=== PATIENT | female | born 1955 ===

== ENCOUNTER 2023-03-02 16:32 | Outpatient (CLI) | payer OTHER, SELFPAY | END 2023-03-02 16:33 | disposition home or self-care (01) | PROVIDERS: PCP Family Medicine; Visit Provider Family Medicine | DX: Z00.00 Encounter for general adult medical examination without abnormal findings (principal); I10 Essential (primary) hypertension; R73.09 Other abnormal glucose; N39.0 Urinary tract infection, site not specified; M81.0 Age-related osteoporosis without current pathological fracture; Z11.59 Encounter for screening for other viral diseases; Z76.89 Persons encountering health services in other specified circumstances | CPT/HCPCS: 80053; 80061; 82043; 82306; 82570; 84443; 86803; 87086 ==

== ENCOUNTER 2023-03-24 11:20 | Outpatient (CLI) | payer OTHER, SELFPAY | END 2023-03-24 11:21 | disposition home or self-care (01) | LOC: FRMREF 11:21 | PROVIDERS: PCP Family Medicine; Visit Provider Family Medicine | DX: I10 Essential (primary) hypertension (principal); N39.0 Urinary tract infection, site not specified; B96.89 Other specified bacterial agents as the cause of diseases classified elsewhere | CPT/HCPCS: 80048; 87086; 87186 ==

== ENCOUNTER 2023-05-24 14:25 | Outpatient (CLI) | payer OTHER, SELFPAY ==
--- NOTE | 2023-05-24 15:00 | XR_ITS ---
Patient: CRISTINA RAZO Facility:?[facility] Patient ID:?[id number] Site Patient ID:?[id number]. Site :?[id number] Study:?DEXA-Bone Density SPINE/LT HIP-05/24/2023 3:05:40 PM Ordering Physician:DION Final Report: DXA BONE MINERAL DENSITY STUDY Reason for exam: Osteoporosis. Current height (in): 59. Weight (lb): 110. Menopause age: 67. Ethnicity: White. 1. Have you had a previous hip or vertebral fracture? No. 2. Have you had any fractures during your adult life which did not result from significant trauma (e.g., auto accident)? No. 3. Did either of your parents have a hip fracture? No. 4. Do you smoke? No. 5. Have you ever taken Glucocorticoids? Yes. 6. Do you have rheumatoid arthritis? No. 7. Do you have secondary osteoporosis? No. 8. Do you drink 3 or more alcoholic drinks per day? No. 9. Are you being treated for osteoporosis? Yes. 10. Have you ever taken any of the following medications: Actonel, Evista, Fosamax, Miacalcin, Reclast, Boniva, Forteo, HRT (i.e., estrogen/hormone therapy), Protelos, Prolia, Vitamin D, Calcium, other ? please specify. ANSWER: Yes, Fosamax (i.e., alendronate), Reclast (i.e., zoledronate), vitamin D, and Prolia (i.e., denosumab). 11. Do you have any of the following medical conditions: Anorexia or bulimia, asthma or emphysema, end stage renal disease, hyperparathyroidism, any seizure disorders, cancer, inflammatory bowel diseases, hysterectomy, other ? please specify. ANSWER: No. 12. What was your maximum height (inches)? 60. 13. Do you perform weight bearing exercise regularly? No. 14. Do you regularly consume dairy products? Yes. 15. Do you drink caffeinated beverages? Yes. If female: 16. At what age did your period start? 11. 17. Are you premenopausal? No. 18. How many full-term pregnancies have you had? 1. 19. Have you ever missed your period for more than 6 months in a row (not including or menopause)? No. TECHNIQUE: Bone mineral density study was performed using the Horizon Wi. FINDINGS: The results of the study expressed as bone mineral density (BMD) are as follows: Lumbar spine L1 to L3: BMD: 0.806 g/cm2. T-score: -1.9. Z-score: 0.0 Neck Left: BMD: 0.675 g/cm2. T-score: -1.6. Z-score: 0.1 Total Left: BMD: 0.822 g/cm2. T-score: -1.0. Z-score: 0.4 IMPRESSION: Osteopenia. Paulie Diaz M.D. Diagnostic Radiologist [email or web address] JOE/matthieu D& Transcribed: 12:40 p.mSandra sommers/Dictated by: Paulie Diaz MD @ 05/25/2023 8:23:00 AM Signed by:?Paulie Diaz MD @05/25/2023 12:51:30 PM (Electronic Signature)
== END 2023-05-24 14:26 | disposition home or self-care (01) ==
LOC: RAD 14:25
PROVIDERS: PCP Family Medicine; Visit Provider Family Medicine
DX: M81.0 Age-related osteoporosis without current pathological fracture (principal); M85.88 Other specified disorders of bone density and structure, other site
CPT/HCPCS: 77080

== ENCOUNTER 2023-09-25 16:37 | Outpatient (CLI) | payer OTHER, SELFPAY ==
--- OUTSIDE RECORDS SUMMARY | 2023-09-26 08:07 | XMS_ITS | Encounter Summary ---
Author Organization [place] Address [address] [place] [address] Care Team Providers Care Pick Up Driver Name Role Phone Raya Bruno PA-C Primary Care Provider Raya Bruno-C Unavailable [phone] Dara Morillo GC Unavailable [phone] Raya Bruno-C Unavailable [phone] Thuan Alarcon MD Unavailable Barber Denton MD, [place] Unavailable [phone] Thuan Sood MD Unavailable [phone] [facility]- Primary Care Provider Barbara Rivera PA-C Unavailable [phone] Thuan Sood MD Unavailable [phone] Reason for Visit * Reason Onset Date Comments Prior Auth - Medication 11/07/2022 Sonido Krishnanastick 20 % SOLUTION- PA APPROVED Encounter Details Date Type Department Care Team (Late st Contact Info) Description 11/07/[address] [address] Livia Bacon PA-C [address] [place], [place] [id number] Prior Auth - Medication (Levulan Kerastick 20 % SOLUTION- [place] APPROVED) Social History Tobacco Use Types Packs/Day Years Used Date Smoking Tobacco: Never Smokeless Tobacco: Never Alcohol Use Standard Drinks/Week Comments Not Currently 0 (1 standard drink = 0.6 oz pur e alcohol) PHQ-2 Answer Date Recorded PHQ-2 Score 0 09/30/2022 Sex and Gender Information Value Date Recorded Sex Assigned at Not on file Gender Identity Not on file Sexual Orientation Not on file COVID-19 Exposure Response Date Recorded In the last 10 days, have yo u been in contact with someone who was confirmed or suspected to have Coronavirus/COVID-19? No / Unsure 11/07/2022 1:00 PM CDT documented as of this encounter Miscellaneous Notes * Telephone Encounter - Yajaira Ramos - 11/11/2022 10:01 AM CDT Images from the original note were not included. Central Prior Authorization Team - Prior Authorization Approval Medication: LEVULAN KERASTICK 20 % EX SOLR Authorization Effective Date: 11/09/2022 Authorization Expiration Date: 02/19/2023 Approved Dose/Quantity: 1.5 Reference #: [facility] Company[facility] [employer] [facility] - Expected CoPay: CoPay Card Available: Financial Assistance Needed: Which Pharmacy is filling the prescription: [id number] [address] [facility] Pharmacy Notified: Yes Patient Notified: Yes PHARMACY WILL NOTIFY WHEN READY * Telephone Encounter - Yajaira Ramos - 11/09/2022 3:04 PM CDT Images from the original note were not included. Central Prior Authorization Team - PA Initiation Medication: LEVULAN KERASTICK 20 % EX SOLR Insurance Company: [employer] - Pharmacy Filling the Rx: [facility] #[id number] [place] - [address] [facility] Filling Pharmacy Filling Pharmacy Fax: Start Date: 11/09/2022 * Telephone Encounter - Falguni King RN - 11/08/2022 8:09 AM CDT Prior Authorization Retail Medication Request Medication/Dose: Aminolevulinic acid 20% ICD code (if different than what is on RX): Previously Tried and Failed: Rationale: Insurance Name: Insurance ID: Pharmacy Information (if different than what is on RX) Name: [facility] [facility] Phone: * Telephone Encounter - Latrice Faria RN - 11/07/2022 4:05 PM CDT REFILL REQUEST documented in this encounter Plan of Treatment Not on file documented as of this encounter Goals Goal Patient Goal Type Associated Problems Recent Progress Patient-Stated? 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 11/14/2022 11/15/202212/05 11:39 PM CDT documented as of this encounter Care Teams Pick Up Driver Relationship Specialty Start Date End Date Raya Bruno PA-C [address] [place] [address] ИРИНА JAIME [address] PCP - General Internal Medicine 10/05/21 02/26/23 [facility]- [address] [place] [address] PCP - General 02/27/23 Raya Bruno PA-C [address] [place] [address] ИРИНА JAIME 90991 Hospitalist Internal Medicine 11/16/21 Dara Morillo GC [address] [place] [address] Genetic Counselor Genetic Counselor, [place] 11/16/21 Raya Bruno PA-C [address] [place] [address] [place] [address] Assigned PCP 10/28/21 Thuan Alarcon MD [address] [place] [address] Assigned Musculoskeletal Provider 12/04/21 [place] Blandon MD [address] [place] [address] [id number] Assigned Gastroenterology Provider 02/05/22 08/12/23 Thuan Sood MD [address] [place] [address] 045205 Assigned Surgical Provider 08/06/22 Barbara Rivera PA-C [address] [place] [address] 248955 Assigned Surgical Provider 03/16/23 Thuan Sood MD [address] [place] [address] [id number] Urology 04/14/23 documented as of this encounter
--- OUTSIDE RECORDS SUMMARY | 2023-09-26 08:07 | XMS_ITS | Encounter Summary ---
Author Organization [place] Address [address] [place] [address] Care Team Providers Care Dirt Bike Mechanic Name Role Phone Raya Bruno PA-C Primary Care Provider + [phone] Raya Bruno-C Unavailable [phone] Dara Morillo GC Unavailable [phone] Raya Bruno-C Unavailable [phone] Thuan Alarcon MD Unavailable Barber Denton MD, [facility] Unavailable [phone] Thuan Sood MD Unavailable [phone] [facility]- Primary Care Provider Barbara Rivera PA-C Unavailable [phone] Thuan Sood MD Unavailable [phone] Reason for Visit * Reason Onset Date Comments Appointment 05/03/2022 Encounter Details Date Type Department Care Team (Late st Contact Info) Description 05/03/2022 [facility] [place] [place] [facility] [place] [id number] [place] [address] [address] [place] [address] Thuan Alarcon MD [address] [place] [address] [address] [place] [address] Appointment Social History Tobacco Use Types Packs/Day Years Used Date Smoking Tobacco: Never Smokeless Tobacco: Never PHQ-2 Answer Date Recorded PHQ-2 Score 0 03/09/2022 Sex and Gender Information Value Date Recorded Sex Assigned at Not on file Gender Identity Not on file Sexual Orientation Not on file COVID-19 Exposure Response Date Recorded In the last 10 days, have yo u been in contact with someone who was confirmed or suspected to have Coronavirus/COVID-19? No / Unsure 05/05/2022 1:28 PM CDT documented as of this encounter Miscellaneous Notes * Telephone Encounter - Jenfier Cyr RN - 05/04/2022 2:24 PM CDT Please also see Mychart dated 05/03/22. Patient was transferred from scheduling. She states physical therapy is recommending that she be seen sooner. She is having difficulty progressing in physical therapy and thinks it could be related to a misstep 10 days after surgery. On 04/15/22 patient forgot to take one step at a time on the stairs and had a misstep that caused her to put all her weight on her left leg. She had severe pain at the time. She did not mention it at her follow up appointment on 04/18/[address] Alarcon as she thought it would improve. She continues tohave pain in one specific area on the inside of her left knee near the lower part of her incision. Incision is closed and healing without drainage. There is a small area of tenderness to the touch that feels somewhat raised and warm to the touch . There is no redness. Knee swelling is improving andshe wears her SIN hose. She denies calf pain or swelling. Now that there are new exercises she is doing in physical therapy, she is having more pain in this area and she is unable to do some of the exercises. Physical therapy recommended she be seen again by Ortho. Patient is able to walk but has a lot of pain if her knee turns or twists in certain positions. Knee is also more stiff. Appointment scheduled with Calvin Gonzalez PA-C on 05/05/22 at 2pm with 1:45 pm arrival. She verbalizedunderstanding. Rhianna Cyr RN documented in this encounter Plan of Treatment Not on file documented as of this encounter Goals Goal Patient Goal Type Associated Problems Recent Progress Patient-Stated? 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 11/14/2022 11/15/202212/05 11:39 PM CDT documented as of this encounter Care Teams Dirt Bike Mechanic Relationship Specialty Start Date End Date Raya Bruno PA-C [address] [place] [address] ИРИНА JAIME 10060 PCP - General Internal Medicine 10/05/21 02/26/23 [facility]- [address] [place] [address] PCP - General 02/27/23 Raya Bruno PA-C [address] [place] [address] ИРИНА JAIME 87502 Hospitalist Internal Medicine 11/16/21 Dara Morillo GC [address] [place] [address] Genetic Counselor Genetic Counselor, [place] 11/16/21 Raya Bruno PA-C [address] [place] [address] ИРИНА JAIME 32263 Assigned PCP 10/28/21 Thuan Alarcon MD [address] [place] [address] 244[address] Assigned Musculoskeletal Provider 12/04/21 [place] Blandon MD [address] [place] [address] Assigned Gastroenterology Provider 02/05/22 08/12/23 Thuan Sood MD [address] [place] [address] Assigned Surgical Provider 08/06/22 Barbara Rivera, PAMarcellaC [address] [place] [address] Assigned Surgical Provider 03/16/23 Thuan Sood MD [address] [place] [address] Urology 04/14/23 documented as of this encounter
--- OUTSIDE RECORDS SUMMARY | 2023-09-26 08:07 | XMS_ITS | Encounter Summary ---
Author Organization [place] Address [address] [place] [address] Care Team Providers Care Drive In Theater Attendant Name Role Phone Damion Raya Montaño PA-C Unavailable [phone] Dara Morillo GC Unavailable [phone] Raya Bruno PA-C Unavailable [phone] Thuan Alarcon MD Unavailable Barber Denton MD, [place] Unavailable [phone] [facility]- Primary Care Provider Barbara Rivera PA-C Unavailable [phone] Thuan Sood MD Unavailable [phone] Encounter Details Date Type Department Care Team (Late st Contact Info) Description 04/06/2023 MyC Medical Advice [facility] [address] 4th [place] [address] Tiffanie Casillas Social History Tobacco Use Types Packs/Day Years Used Date Smoking Tobacco: Never Smokeless Tobacco: Never Alcohol Use Standard Drinks/Week Comments Not Currently 0 (1 standard drink = 0.6 oz pur e alcohol) PHQ-2 Answer Date Recorded PHQ-2 Score 0 09/30/2022 Adolescent Education Answer Date Record ed Getting School Help Needed Not on file 11/12 Sex and Gender Information Value Date Recorded Sex Assigned at Not on file Gender Identity Not on file Sexual Orientation Not on file documented as of this encounter Plan of Treatment Not on [...] 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 documented as of this encounter Care Teams Drive In Theater Attendant Relationship Specialty Start Date End Date [facility]- [address] [place] [address] PCP - General 02/27/23 Raya Bruno PA-C [address] [place] [address] ИРИНА JAIME 52020 Hospitalist Internal Medicine 11/16/21 Dara Morillo GC [address] [place] [address] Genetic Counselor Genetic Counselor, [place] 11/16/21 Raya Bruno PA-C [address] [place] [address] ИРИНА JAIME [address]45 Assigned PCP 10/28/21 Thuan Alarcon MD [address] [phone] Assigned Musculoskeletal Provider 12/04/21 [place] Blandon MD [address] [place] [address]881 Assigned Gastroenterology Provider 02/05/22 08/12/23 Barbara Rivera PA-C [address] [place] [address] 12749 Assigned Surgical Provider 03/16/23 Thuan Sood MD [address] [place] [address] Urology 04/14/23 documented as of this encounter
--- OUTSIDE RECORDS SUMMARY | 2023-09-26 08:07 | XMS_ITS | Encounter Summary ---
Author Organization [place] Address [address] [place] [address]41 Care Team Providers Care Vanstone Machine Operator Name Role Phone Raya Bruno PA-C Unavailable [phone] Dara Morillo GC Unavailable Raya BrunoC Unavailable [phone] Thuan Alarcon MD Unavailable [facility]- Primary Care Provider Barbara RiveraC Unavailable Thuan Sood MD Unavailable [phone] Reason for Visit * Reason Comments Medication Refill Encounter Details Date Type Department Care Team (Late st Contact Info) Description 09/01/[address] [place] [id number] Raya Bruno PA-C [address] [place] [address] ИРИАН JAIME 59597 Medication Refill Social History Tobacco Use Types Packs/Day Years [...] on file documented as of this encounter Miscellaneous Notes * Telephone Encounter - Raya Bruno PA-C - 09/06/2023 2:15 PM CDT Refill denied. * Telephone Encounter - Nuris Ernst CMA - 09/06/2023 2:05 PM CDT Spoke to pt, states she is no longer a [facility] pt. Advised to contact pharmacy and let them know. Pt agrees. Please remove medication. Alvin Eden CMA * Telephone Encounter - Soniya Rucker RN - 09/05/2023 3:52 PM CDT Has not been seen since 09/30/22, encounter from 02/24/23 MC is that she moved to different [facility] in [place]. Triage Patient Outreach Attempt # 1 Was call answered? No. Left voicemail to return call to EP clinic. Upon c/b: please let pt know that she needs to request refills from new PCP. Soniya Rucker, RN documented in this encounter Plan of Treatment Not on file documented as of this encounter Goals Goal Patient Goal Type Associated Problems Recent Progress Patient-Stated? 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 documented as of this encounter Care Teams Vanstone Machine Operator Relationship Specialty Start Date End Date [facility]- [address] [place] [address] PCP - General 02/27/23 Raya Bruno PA-C [address] [place] [address] ИРИНА JAIME 04356 Hospitalist Internal Medicine 11/16/21 [place] [address] [place] [address] Genetic Counselor Genetic Counselor, [place] 11/16/21 Raya Bruno PA-C [address] [place] [address] ИРИНА JAIME 31060 Assigned PCP 10/28/21 Thuan Alarcon MD 420 [facility] [address] [place] [address] Assigned Musculoskeletal Provider 12/04/21 Barbara Rivera PA-C [address] [place] [address] Assigned Surgical Provider 03/16/23 Thuan Sood MD [address] [place] [address] Urology 04/14/23 documented as of this encounter
--- OUTSIDE RECORDS SUMMARY | 2023-09-26 08:07 | XMS_ITS | Encounter Summary ---
Author Organization [place] Address [address] [place] [address]95 Care Team Providers Care Draw Tender Name Role Phone Raya Bruno PA-C Primary Care Provider + [phone] Raya Bruno PA-C Unavailable [phone] Dara Morillo GC Unavailable [phone] Raya Bruno-C Unavailable [phone] Thuan Alarcon MD Unavailable Barber Denton MD, [place] Unavailable [phone] Thuan Sood MD Unavailable [phone] [facility]- Primary Care Provider Barbara Rivera PA-C Unavailable [phone] Thuan Sood MD Unavailable [phone] Encounter Details Date Type Department Care Team (Late st Contact Info) Description 05/04/2022 [facility] [place] [address] [place] [address] Nela Yu, PT [address] [address] Social History Tobacco Use Types Packs/Day Years [...] PM CDT documented as of this encounter Plan of [...] documented as of this encounter Care Teams Draw Tender Relationship Specialty Start Date End Date Raya Bruno PA-C [address] [place] [address] ИРИНА JAIME 17070 PCP - General Internal Medicine 10/05/21 02/26/23 [facility]- [address], [place] [address] PCP - General 02/27/23 Raya Bruno PA-C [address] [place] [address] ИРИНА JAIME 49720 Hospitalist Internal Medicine 11/16/21 Dara Morillo GC [address] [place] [address] Genetic Counselor Genetic Counselor, [place] 11/16/21 Raya Bruno PA-C [address] [place] [address] ИРИНА JAIME 72136 Assigned PCP 10/28/21 Thuan Alarcon MD [address] [place] [address] Assigned Musculoskeletal Provider 12/04/21 [place] Blandon MD [address] [place] [address] Assigned Gastroenterology Provider 02/05/22 08/12/23 Thuan Sood MD [address] [place] [address]309 Assigned Surgical Provider 08/06/22 Barbara Rivera, PA-C [address] [place] [address] Assigned Surgical Provider 03/16/23 Thuan Sood MD [address] [place] [address] Urology 04/14/23 documented as of this encounter
--- OUTSIDE RECORDS SUMMARY | 2023-09-26 08:07 | XMS_ITS | Encounter Summary ---
Author Organization [place] Address [address] [place] [address] Care Team Providers Care Meat Cutting Teacher Name Role Phone Raya Bruno PA-C Primary Care Provider + [phone] Raya Bruno-C Unavailable [phone] Dara Morillo GC Unavailable [phone] Raya Bruno-C Unavailable [phone] Thuan Alarcon MD Unavailable Barber Denton MD, [place] Unavailable [phone] Thuan Sood MD Unavailable [phone] [facility]- Primary Care Provider Barbara Rivera PA-C Unavailable [phone] Thuan Sood MD Unavailable [phone] Encounter Details Date Type Department Care Team (Late st Contact Info) Description 02/02/2022 Telephone [facility] [address] [facility] [address] 4th [place] [address] Thuan Alarcon MD 420 [facility] 292 [place] [address] Social History Tobacco Use Types Packs/Day Years Used Date Smoking Tobacco: Never Smokeless Tobacco: Never PHQ-2 Answer Date Recorded PHQ-2 Score 0 02/02/2022 Sex and Gender Information Value Date Recorded [...] documented as of this encounter Care Teams Meat Cutting Teacher Relationship Specialty Start Date End Date Raya Bruno PA-C [address] [place] [address] ИРИНА JAIME [address] PCP - General Internal Medicine 10/05/21 02/26/23 [facility]- [address], [place] [address] PCP - General 02/27/23 Raya Bruno PA-C [address] [place] [address] ИРИНА JAIME 95839 Hospitalist Internal Medicine 11/16/21 Dara Morillo GC [address] [place] [address] Genetic Counselor Genetic Counselor, [place] 11/16/21 Raya Bruno PA-C [address] [place] [address] ИРИНА JAIME 36359 Assigned PCP 10/28/21 Thuan Alarcon MD [address] [place] [address] Assigned Musculoskeletal Provider 12/04/21 [place] Blandon MD [address] [place] [address] Assigned Gastroenterology Provider 02/05/22 08/12/23 Thuan Sood MD [address] [place] [address] Assigned Surgical Provider 08/06/22 Barbara Rivera PA-C [address] [place] [address] Assigned Surgical Provider 03/16/23 Thuan Sood MD [address] [place] [address] Urology 04/14/23 documented as of this encounter
--- OUTSIDE RECORDS SUMMARY | 2023-09-26 08:07 | XMS_ITS | Encounter Summary ---
Author Organization [facility] Address [address] [place] [address] Care Team Providers Care Mannequin Mold Maker Name Role Phone Raya Bruno PA-C Primary Care Provider + [phone] Raya Bruno PA-C Unavailable [phone] Dara Morillo GC Unavailable [phone] Raya Bruno-C Unavailable [phone] Thuan Alarcon MD Unavailable Barber Denton MD, [place] Unavailable [phone] Tuhan Sood MD Unavailable [phone] [facility]- Primary Care Provider Barbara Rivera PA-C Unavailable [phone] Thuan Sood MD Unavailable [phone] Encounter Details Date Type Department Care Team (Late st Contact Info) Description 09/20/2022 [facility] Medical Advice [facility] U[facility] Clinic [address] 4th [place] [address] Vidya Castillo Social History Tobacco Use Types Packs/Day Years Used Date Smoking Tobacco: Never Smokeless Tobacco: Never Alcohol Use Standard Drinks/Week Comments Not Currently 0 (1 standard drink = 0.6 oz pur e alcohol) PHQ-2 Answer Date Recorded PHQ-2 Score 0 08/02/2022 Sex and Gender Information Value Date Recorded Sex Assigned at Not on file Gender Identity Not on file Sexual Orientation Not on file COVID-19 Exposure Response Date Recorded In the last 10 days, have yo u been in contact with someone who was confirmed or suspected to have Coronavirus/COVID-19? No / Unsure 09/23/2022 10:02 AM CDT documented as of this encounter Plan [...] documented as of this encounter Care Teams Mannequin Mold Maker Relationship Specialty Start Date End Date Raya Bruno PA-C [address] [place] [address] ИРИНА JAIME [address] PCP - General Internal Medicine 10/05/21 02/26/23 [facility]- [address] [place] [address] PCP - General 02/27/23 Raya Bruno PA-C [address] [place] [address] ИРИНА JAIME [address] Hospitalist Internal Medicine 11/16/21 Dara Morillo GC [address] [place] [address] Genetic Counselor Genetic Counselor, [place] 11/16/21 Raya Bruno PA-C [address] [place] [address] ИРИНА JAIME [address] Assigned PCP 10/28/21 Thuan Alarcon MD [address] [place] [address] Assigned Musculoskeletal Provider 12/04/21 Darien Blandon MD [address] [place] [address] [id number] Assigned Gastroenterology Provider 02/05/22 08/12/23 Thuan Sood MD [address] [place] [address] 158305 Assigned Surgical Provider 08/06/22 Barbara Rivera, PAMarcellaC [address] [place] [address] Assigned Surgical Provider 03/16/23 Thuan Sood MD [address] [place] [address] [id number] Urology 04/14/23 documented as of this encounter
--- OUTSIDE RECORDS SUMMARY | 2023-09-26 08:07 | XMS_ITS | Clinical Summary ---
Author Organization [facility] Address [address] [place] [address] Care Team Providers Care Road Hogger Operator Name Role Phone Raya Bruno PA-C Unavailable [phone] Dara Morillo GC Unavailable Raya Bruno PA-C Unavailable Thuan Alarcon MD Unavailable [facility]- Primary Care Provider Barbara Rivera PA-C Unavailable [phone] Thuan Sood MD Unavailable Allergies Active Allergy Reactions Criticality Noted Date Comments Nitrofuran Derivatives Other (See Comments),Rash Medium 10/25/2002 Rash: Rash No Clinical Screening - See Comments Swelling,Other (See Comments) 09/10/2012 Bio-absorbable material (screws & pins), causes inflammation bioabsorpable screws Medications Medication Sig Dispensed Refills Start Date End Date Status Coenzyme Q10 (CO Q 10 PO) Take 1 chew tab by mouth daily gummy Active Ca Phosphate-Cholecalc iferol (CALCIUM/VITAMIN D3 GUMMIES) 250-350 MG-UNIT CHEW Take 2 tablets by mouth daily Active pregabalin (LYRICA) 25 MG capsuleIndications: 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 Max 4 tablets/24 hours. 12 tablet 3 Active estradiol (ESTRACE) 0.1 MG/GM vaginal cream INSERT 1 GRAM IN TO VAGINA TWO TIMES A WEEK 3 Active ondansetron (ZOFRAN ODT) 4 MG ODT tabIndications:Calc ulus of kidney Take 1 tablet (4 mg) by mouth every 8 hours as needed for nausea 10 tablet 3 Active celecoxib (CELEBREX) 100 MG capsuleIndications: Hip pain, right Take 1 capsule (100 mg) by mouth 2 times daily 180 capsule 3 Active omeprazole (PRILOSEC) [address] capsuleIndications: Gastroesophageal reflux disease with esophagitis without hemorrhage,Mariscal' s esophagus without dysplasia TAKE 1 CAPSULE BY MOUTH EVERY DAY 90 capsule 4 3 Active atorvastatin (LIPITOR) 20 MG tabletIndications:M ixed hyperlipidemia Take 1 tablet (20 mg) by mouth every evening 90 tablet 2 3 Active mirabegron (MYRBETRIQ) 25 MG 24 hr tabletIndications:O veractive bladder,Mixed incontinence Take 1 tablet (25 mg) by mouth daily 30 tablet 3 3 Active primidone (MYSOLINE) 50 MG tabletIndications:B enign essential tremor Take 4 tablets (200 mg) by mouth at bedtime 360 tablet 2 4 Active DULoxetine (CYMBALTA) 30 MG capsuleIndications: 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) TAKE 1 CAPSULE BY MOUTH EVERY DAY 90 capsule 4 Active triamterene-HCTZ (MAXZIDE-25) 37.5-25 MG tabletIndications:E ssential hypertension TAKE 1/2 TABLET BY MOUTH EVERY DAY 45 tablet 1 4 Active triamterene-HCTZ (MAXZIDE-25) 37.5-25 MG tabletIndications:E ssential hypertension triamterene 37.5 mg-hydrochlorot hiazide 25 mg tablet TAKE 1/2 TABLET BY MOUTH EVERY DAY 90 tablet 08/30/19 24 Discontinued Active Problems Problem Noted Date Diagnosed Date Diastolic dysfunction 09/23/2022 Overview: Grade I, found on echocardiogram 09/2022 Acute chest pain 08/26/2022 Calculus of kidney 08/02/2022 Overview: Added automatically from request for surgery [id number] Aftercare following left knee joint replacement surgery 04/19/2022 Primary osteoarthritis of left knee 03/22/2022 Overview: Added automatically from request for surgery [id number] Benign essential tremor 11/12/2021 Compression of cauda equina due to stenosis of l umbar spine 11/12/2021 History of kidney stones 11/12/2021 Age-related osteoporosis wit hout current pathological fracture 11/10/2021 Mariscal's esophagus 11/10/2021 Hypertension 10/31/2016 Mixed hyperlipidemia 10/07/2015 Reflux esophagitis 02/03/2004 Encounters Date Type Department Care Team Description 09/02/[address] [address] Raya Bruno PA-C Medication Refill 09/01/2023 Refill M [address] [address] Raya Bruno PA-C Medication Refill 08/30/2023 Refill M [address] [address] Raya Bruno PA-C Medication Refill 08/08/2023 Refill M [address] [address] Raya Bruno PA-C Medication Refill 07/18/2023 Refill M [address] [place] [address] Raya Bruno PA-C Medication Refill from Last 3 Months Immunizations Name Administration Dates Next Due COVID-19 12+ () (MODERNA) 01/25/2023 COVID-19 Bivalent 12+ (Pfizer) 11/01/2021 COVID-19 Monovalent 18+ (Moderna) 04/17/2020, COVID-19 Monovalent Booster 18+ (Moderna) 04/22/2021,10/08/2020 Influenza (H1N1) 10/31/2013,03/16/2009 Influenza (IIV3) PF 11/07/2012, 2,11/18/2010,2009,11/21/2007,12/15/2006,01/31/2005,1 ,01/12/2004,01/08/2003 Influenza Vaccine 65+ (FLUAD) 01/05/2023 Influenza Vaccine 65+ (Fluzone HD) 12/03/2021 Influenza Vaccine >6 months,quad, PF 10/31/2016, 12/04/2015 Influenza Vaccine, 6+MO IM (QUADRIVALENT W/PRESERVATIVES) 12/09/2014 Pneumococcal 23 valent 03/18/2016 RSV Vaccine (Arexvy) 12/28/2022 TD,PF 7+ (Tenivac) 02/05/2002 TDAP (Adacel,Boostrix) 03/07/2012 TDAP Vaccine (Adacel) 07/14/2023 Td (Adult), Adsorbed 02/20/2002,02/05/2002 Zoster vaccine, live 03/02/2011 Family History Medical History Relation Comments Lung Cancer Brother Uterine Cancer Mother Multiple myeloma Sister Relation Status Comments Brother Mother Sister Social History Tobacco Use Types Packs/Day Years Used Date Smoking Tobacco: Never Smokeless Tobacco: Never Tobacco Cessation:Counseling Given: Not Answered Alcohol Use Standard Drinks/Week Comments Not Currently 0 (1 standard drink = 0.6 oz pur e alcohol) PHQ-2 Answer Date Recorded PHQ-2 Score 0 09/30/2022 Adolescent Education Answer Date Record ed Getting School Help Needed Not on file 11/12 Sex and Gender Information Value Date Recorded Sex Assigned at Not on file Gender Identity Not on file Sexual Orientation Not on file Last Filed Vital Signs Vital Sign Reading Time Taken Comments Blood Pressure 123/78 01/20/2023 11:20 AM MEETING FACILITATOR Pulse 79 01/20/2023 11:20 AM MEETING FACILITATOR Temperature 37 ??C (98.6 ??F) 09/30/2022 11:17 AM CDT Respiratory Rate 14 09/30/2022 11:17 AM CDT Oxygen Saturation 97% 01/20/2023 11:20 AM MEETING FACILITATOR Inhaled Oxygen Concentration - - Weight 47.2 kg (104 lb) 10/21/2022 2:00 PM CDT p er pt Height 147.3 cm (4' 10) 10/21/2022 2:00 PM CDT per pt Body Mass Index 21.74 10/21/2022 2:00 PM CDT Plan of Treatment Health Maintenance Due Date Last Done Comments CT COLONOGRAPHY 1955 DEXA 1955 FIT 1955 FLEX SIG 1955 sDNA (Cologuard) 1955 ZOSTER IMMUNIZATION (2 of 3) 04/27/2011 03/02/2011 Pneumococcal Vaccine: 65+ Years (2 of 2 - PCV) 11/20/2019 03/18/2016 ANNUAL REVIEW OF HM ORDERS 11/12/2022 11/12/2021 PHQ-2 (once per calendar year) 2023 09/30/2022, 08/02/2022, 07/19/2022, Additional history exists COVID-19 Vaccine ( season) 2023 01/25/2023, 11/01/2021, 04/22/2021, Additional history exists FALL RISK ASSESSMENT 10/01/2023 09/30/2022, 07/19/2022, 11/12/2021 LIPID 10/01/2023 09/30/2022, 11/12/2021 MEDICARE ANNUAL WELLNESS VISIT 10/01/2023 09/30/2022, 03/18/2016, 03/18/2015, Additional history exists INFLUENZA VACCINE (#1) 2023 , 12/03/2021, 10/31/2016, Additional history exists MAMMO SCREENING 12/08/2023 12/07/2021, 07/22, 08/19/2015, Additional history exists GLUCOSE 09/30/2025 09/30/2022, 08/2022, 07/18/2022, Additional history exists ADVANCE CARE PLANNING 10/01/2027 09/30/2022 , 08/19/2022, 03/09/2022 COLONOSCOPY 02/12/2032 02/11/2022, 01/21, 04/12/2016, Additional history exists COLORECTAL CANCER SCREENING 02/12/2032 DTAP/TDAP/TD IMMUNIZATION (3 - Td or Tdap) 07/13/2033 07/14/2023, 03/07/2012, 02/20/2002, Additional history exists HEPATITIS C SCREENING Addressed 05/08/2013 Overri dden with the intention of not completing the topic RSV VACCINE ( & 60+) Completed 12/28/2022 HPV IMMUNIZATION Aged Out No longer e ligible based on patient's age to complete this topic IPV IMMUNIZATION Aged Out No longer e ligible based on patient's age to complete this topic MENINGITIS IMMUNIZATION Aged Out No l onger eligible based on patient's age to complete this topic RSV MONOCLONAL ANTIBODY Aged Out No l onger eligible based on patient's age to complete this topic Goals Goal Patient Goal Type Associated Problems Recent Progress Patient-Stated? Author 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 Care Plan 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 No [employer] Implanted Type Area Resort Keeper Device Identifier Shelf Expiration Date Model / Serial / Lot Bone Cement Simplex Full Dose 6191-1-001 - [id number] Implanted:Qty: 1 on 04/05/2022 by Thuan Alarcon MD at [facility] Cement, Bone Left: Knee [employer] [id number] 07/20/2024 6191-1-001 / / [id number] Stent, Ureteral, 6fr X 22cm, Hydroplus Coating, Positioner, Without Fire, Percuflex Plus - [id number] Implanted:Qty: 1 on 08/26/2022 by Thuan Sood MD at [facility] Stent Left: Ureter 10/07/2022 [id number] / / [id number] Link Sled Prosthesis Implanted:Qty: 1 on 04/05/2022 by Thuan Alarcon MD at [facility] Left: Knee [id number] 10/20/2024 FEMORAL COMPONENT / [id number] / Link Sled Prosthesis Implanted:Qty: 1 on 04/05/2022 by Thuan Alarcon MD at [facility] Left: Knee [id number] 10/20/2025 TIBIAL COMPONENT / / [id number] Procedures Procedure Name Priority Date/Time Associated Diagnosis Comments COMPREHENSIVE METABOLIC PANEL Routine 09/30/2022 12:14 PM CDT Primary hypertension LIPID REFLEX TO DIRECT LDL PANEL Routine 09/30/2022 12:14 PM CDT Mixed hyperlipidemia COLONOSCOPY Routine 02/11/2022 10:23 AM MEETING FACILITATOR MA SCREENING WITH IMPLANTS BILATERAL W/ PRANAV Routine 12/07/2021 11:34 AM CDT Visit for screening mammogram from Last 3 Months or Most Recently Relevant to Health Maintenance Results * Lipid panel reflex to direct LDL Fasting (09/30/2022 12:14 PM CDT) Cholesterol 184 <200 mg/dL 09/30/2022 7:53 PM CDT [facility] Triglycerides 67 <150 mg/dL 09/30/2022 7:53 PM CDT [facility] Direct Measure HDL 90 >=50 mg/dL 2022 7:53 PM CDT [facility] LDL Cholesterol Calculated 81 <=100 mg/dL 09/30/2022 7:53 PM CDT [facility] Non HDL Cholesterol 94 <130 mg/dL 09/30/2022 7:53 PM CDT [facility] Blood BLOOD SPECIMEN / Unknown Venipuncture / Unknown 09/30/2022 12:14 PM CDT 09/30/2022 12:21 PM CDT Narrative [facility] - 09/30/2022 7:53 PM CDT Cholesterol Desirable: ??<200 mg/dL Triglycerides Normal: ??Less than 150 mg/dL Borderline High: ??150-199 mg/dL High: ??200-499 mg/dL Very High: ??Greater than or equal to 500 mg/dL Direct Measure HDL Female: ??Greater than or equal to 50 mg/dL Male: ??Greater than or equal to 40 mg/dL LDL Cholesterol Desirable: ??<100mg/dL Above Desirable: ??100-129 mg/dL Borderline High: ??130-159 mg/dL High: ??160-189 mg/dL Very High: ??>= 190 mg/dL Non HDL Cholesterol Desirable: ??130 mg/dL Above Desirable: ??130-159 mg/dL Borderline High: ??160-189 mg/dL High: ??190-219 mg/dL Very High: ??Greater than or equal to 220 mg/dL Raya Bruno PA-C LAB - BLOOD ORDERA BLES [facility] [address] [facility], [address] [id number], [facility] [phone] * Comprehensive metabolic panel (09/30/2022 12:14 PM CDT) Pathologist [facility] Sodium 140 136 - 145 mmol/L 09/30/2022 7:53 PM CDT [facility] Potassium 3.9 3.4 - 5.3 mmol/L 09/30/2022 7:53 PM CDT [facility] Chloride 102 98 - 107 mmol/L 09/30/2022 7:53 PM CDT [facility] Carbon Dioxide (CO2) 25 22 - 29 mmol/L 09/30/2022 7:53 PM CDT [facility] Anion Gap 13 7 - 15 mmol/L 09/30/2022 7:53 PM CDT [facility] Urea Nitrogen 14.3 8.0 - 23.0 mg/dL 09/30/2022 7:53 PM CDT [facility] Creatinine 0.59 0.51 - 0.95 mg/dL 09/30/2022 7:53 PM CDT [facility] Calcium 9.1 8.8 - 10.2 mg/dL 09/30/2022 7:53 PM CDT [facility] Glucose 94 70 - 99 mg/dL 09/30/2022 7:53 PM CDT [facility] Alkaline Phosphatase 87 35 - 104 U/L 09/30/2022 7:53 PM CDT [facility] AST 31 0 - 45 U/L 09/30/2022 7:53 PM CDT [facility] Comment:Reference intervals for this test were updated on 08/01/2022 to more accurately reflect our healthy population. There may be differences in the flagging of prior results with similar values performed with this method. Interpretation of those prior results can be made in the context of the updated reference intervals. ALT 24 0 - 50 U/L 09/30/2022 7:53 PM CDT [facility] Comment:Reference intervals for this test were updated on 08/01/2022 to more accurately reflect our healthy population. There may be differences in the flagging of prior results with similar values performed with this method. Interpretation of those prior results can be made in the context of the updated reference intervals. Protein Total 7.1 6.4 - 8.3 g/dL 09/30/2022 7:53 PM CDT [facility] Albumin 4.6 3.5 - 5.2 g/dL 09/30/2022 7:53 PM CDT [facility] Bilirubin Total 0.3 <=1.2 mg/dL 09/30/2022 7:53 PM CDT [facility] GFR Estimate >90 >60 mL/min/1. 73m2 09/30/2022 7:53 PM CDT [facility] Blood BLOOD SPECIMEN / Unknown Venipuncture / Unknown 09/30/2022 12:14 PM CDT 09/30/2022 12:21 PM CDT Raya Bruno PA-C LAB - BLOOD ORDERA BLES [facility] [address] [facility], [address] [place] [address], [facility] [phone] * COLONOSCOPY (02/11/2022 10:23 AM MEETING FACILITATOR) [place] [address] Jahaira Chang ??ИРИНА Farfan ??[id number] Patient Name: Florence Winn ?Procedure Date: 02/11/2022 10:23 AM ? Date of : 1955 ?Admit Type: Outpatient Age: 66 ? Room: [place] [address] Note Status: Finalized ?Attending MD: RINKU MEDRANO MD Instrument Name: [id number] Colonoscope Procedure: ?Colonoscopy Indications: ?Screening for colorectal malignant neoplasm Providers: ?RINKU MEDRANO MD, Shanita Chacko RN Referring : ? ROSALES HURTADO Medicines: ?Midazolam 6 mg IV, Fentanyl 150 micrograms IV, ?Ondansetron 4 mg IV Complications: ?No immediate complications. Procedure: ?Pre-Anesthesia Assessment: ?- Prior to the procedure, a History and Physical ?was performed, and patient medications and ?allergies were reviewed. The patient is competent. ?The risks and benefits of the procedure and the ?sedation options and risks were discussed with the ?patient. All questions were answered and informed ?consent was obtained. Patient identification and ?proposed procedure were verified by the physician. ?Mental Status Examination: alert and oriented. ?Prophylactic Antibiotics: The patient does not ?require prophylactic antibiotics. Prior ?Anticoagulants: The patient has taken no ?anticoagulant or antiplatelet agents. ASA Grade ?Assessment: I - A normal, healthy patient. After ?reviewing the risks and benefits, the patient was ?deemed in satisfactory condition to undergo the ?procedure. The anesthesia plan was to use moderate ?sedation / analgesia (conscious sedation). ?Immediately prior to administration of medications, ?the patient was re-assessed for adequacy to receive ?sedatives. The heart rate, respiratory rate, oxygen ?saturations, blood pressure, adequacy of pulmonary ?ventilation, and response to care were monitored ?throughout the procedure. The physical status of ?the patient was re-assessed after the procedure. ?After obtaining informed consent, the colonoscope ?was passed under direct vision. Throughout the ?procedure, the patient's blood pressure, pulse, and ?oxygen saturations were monitored continuously. The ?Colonoscope was introduced through the anus and ?advanced to the terminal ileum, with identification ?of the appendiceal orifice and IC valve. The ?terminal ileum, ileocecal valve, appendiceal ?orifice, and rectum were photographed. ? Findings: ? The perianal and digital rectal examinations were normal. ? The terminal ileum appeared normal. ? The colon (entire examined portion) appeared normal. ? External and internal hemorrhoids were found during retroflexion. The ? hemorrhoids were small. ? Impression: ? - The examined portion of the ileum was normal. ?- The entire examined colon is normal. ?- External and internal hemorrhoids. ?- No specimens collected. Recommendation: ? - Discharge patient to home. ?- Resume regular diet. ?- Continue present medications. ?- Repeat colonoscopy in 10 years for surveillance. ? Procedure Code(s): ? --- Professional --- ? G0121, Colorectal cancer screening; colonoscopy on individual not ? meeting criteria for high risk Diagnosis Code(s): ? --- Professional --- ? Z12.11, Encounter for screening for malignant neoplasm of colon ? K64.8, Other hemorrhoids CPT copyright 2020 [employer]. All rights reserved. The codes documented in this report are preliminary and upon pre coder review may be revised to meet current compliance requirements. Electronic Signature by Dr. Rinku Medrano RINKU MEDRANO MD 02/11/2022 11:30:00 AM I was physically present for the entire viewing portion of the exam. RINKU MEDRANO MD Number of Addenda: 0 Note Initiated On: 02/11/2022 10:23 AM Scope Withdrawal Time: 0 hours 16 minutes 12 seconds Total Procedure Duration: 0 hours 21 minutes 39 seconds Scope In: 10:55:11 AM Scope Out: 11:16:50 AM RADIOLOGY RESULTS 02/11/2022 10:2 3 AM MEETING FACILITATOR Raya A Chromy PA-C PROCEDURES RADIOLOGY RESULTS * MA Screen with Implants Bilateral w/Pranav (12/07/2021 11:34 AM CDT) Anatomical Region Laterality Modality Breast Bilateral Mammography Impressions 12/09/2021 8:46 AM CDT IMPRESSION: ACR BI-RADS Category 2: Benign RECOMMENDED FOLLOW-UP: Annual routine screening mammogram The results and recommendations of this examination will be communicated to the patient. Chong Townsend Narrative 12/09/2021 8:46 AM CDT BILATERAL FULL FIELD DIGITAL SCREENING MAMMOGRAM WITH TOMOSYNTHESIS Performed on: 12/07/21 Compared to: 08/19/2015 Technique: ??This study was evaluated with the assistance of Computer-Aided Detection. ??Breast Tomosynthesis was used in interpretation. Findings: The breasts are heterogeneously dense, which may obscure small masses. ??There are breast augmentation changes in both breasts. There is no radiographic evidence of malignancy. Raya A Chromy PA-C IMG MAMMOGRAPHY OR DERABLES from Last 3 Months or Most Recently Relevant to Health Maintenance Additional Health Concerns Active Problems Noted Date Diagnosed Date 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 Care Teams Road Hogger Operator Relationship Specialty Start Date End Date [facility]- [address] [place] [address] PCP - General 02/27/23 Raya Bruno PA-C [address] [place] [address] ИРИНА JAIME [address] Hospitalist Internal Medicine 11/16/21 Dara Morillo GC [address] [place] [address] Genetic Counselor Genetic Counselor, [place] 11/16/21 Raya Bruno PA-C [address] [place] [address] ИРИНА JAIME [address] Assigned PCP 10/28/21 Thuan Alarcon MD [address] [facility] [address] [place] [address] Assigned Musculoskeletal Provider 12/04/21 Barbara Rivera PA-C [address] [place] [address] Assigned Surgical Provider 03/16/23 Thuan Sood MD [address] [place] [address] Urology 04/14/23
--- OUTSIDE RECORDS SUMMARY | 2023-09-26 08:07 | XMS_ITS | Encounter Summary ---
Author Organization [place] Address [address] [place] [address] Care Team Providers Care Inspector Plug Seam Name Role Phone Raya Bruno PA-C Primary Care Provider Raya Bruno PA-C Unavailable [phone] Dara Morillo GC Unavailable [phone] Raya Bruno PA-C Unavailable [phone] Thuan Alarcon MD Unavailable Barber Denton MD, [place] Unavailable [phone] Thuan Sood MD Unavailable [phone] [facility]- Primary Care Provider Barbara Rivera PA-C Unavailable Thuan Sood MD Unavailable [phone] Reason for Visit * Reason Onset Date Comments Transferring clinic 02/24/2023 Moved to [facility], transferred care to [facility] Encounter Details Date Type Department Care Team (Latest Contact Info) Description 02/24/2023 [facility] Medical Advice [address] [place] [address] Raya Bruno PA-C [address] [place] [address] ИРИН[place] JAIME [address] Transferring clinic (Moved to [place], ... Social History Tobacco Use Types Packs/Day Years [...] Telephone Encounter - Raya Bruno PA-C - 02/27/2023 10:54 AM CLOTH FINISHING RANGE BACK TENDER Noted, care team updated. H FINISHING RANGE BACK TENDER documented in this encounter Plan of Treatment [...] documented as of this encounter Care Teams Inspector Plug Seam Relationship Specialty Start Date End Date Raya Bruno PA-C [address] [place] [address] И[place] JAIME [address] PCP - General Internal Medicine 10/05/21 02/26/23 [facility]- [address] [place] [address] PCP - General 02/27/23 Raya Bruno PA-C [address] [place] [address] ИРИН[place] JAIME [address] Hospitalist Internal Medicine 11/16/21 Dara Morillo GC [address] [place] [address] Genetic Counselor Genetic Counselor, [place] 11/16/21 Raya Bruno PA-C [address] [place] [address] ИРИН[place] JAIME 37469 Assigned PCP 10/28/21 Thuan Alarcon MD [address] [place] [address] 66098 Assigned Musculoskeletal Provider 12/04/21 D[place]en Blandon MD [address] [place] [address] [id number] Assigned Gastroenterology Provider 02/05/22 08/12/23 Thuan Sood MD [address] [place] [address] 20566 Assigned Surgical Provider 08/06/22 Barbara Rivera PA-C [address] [place] [address] 45081 Assigned Surgical Provider 03/16/23 Thuan Sood MD [address] [place] [address]14 Urology 04/14/23 documented as of this encounter
--- OUTSIDE RECORDS SUMMARY | 2023-09-26 08:07 | XMS_ITS | Encounter Summary ---
Author Organization [place] Address [address] [place] [address] Care Team Providers Care Manager Hair Name Role Phone Raya Bruno PA-C Primary Care Provider + [phone] Raya Bruno-C Unavailable [phone] Dara Morillo GC Unavailable [phone] Raya Bruno-C Unavailable [phone] Thuan Alarcon MD Unavailable Barber Denton MD, [place] Unavailable [phone] Thuan Sood MD Unavailable [phone] [facility]- Primary Care Provider Barbara Rivera PA-C Unavailable [phone] Thuan Sood MD Unavailable [phone] Encounter Details Date Type Department Care Team (Late st Contact Info) Description 02/22/2022 Telephone [facility] [address] [facility] [address] 4th [place] [address] Thuan Aalrcon MD [address] [facility] [address] [place] [address] Social History Tobacco Use Types [...] suspected to have Coronavirus/COVID-19? No / Unsure 02/18/2022 11:29 AM HOMICIDE INVESTIGATOR documented as of this encounter Miscellaneous Notes * Telephone Encounter - Slime Munoz - 02/23/2022 8:[address] Alarcon, please place orders for surgery. Once surgery is scheduled will coordinate pre-op consult. Plan from last visit, Discussed med uni vs TKA. She'd prefer medial uni. Has really localized medial knee pain. Discussed vessel disease as well. On a statin. Would like to update inflammatory markers and arthritic profile. See back as preop if she'd like to proceed with uni knee arthroplasty. Understands could have some underlying inflammatory that has not been diagnosed yet which might requiremove to TKA in next few years. Has tried intra articular injections including viscosupplementation without lasting relief. Provided information regarding uni arthroplasty. Slime Munoz ATC CIDE INVESTIGATOR * Telephone Encounter - Oleg Ferro - 02/22/2022 4:04 PM CST Patient had met with Dr. Alarcon back in November, and was hoping to schedule her surgery for some timenow, per patient. Patient would appreciate a call at [phone]. Thank you! CIDE INVESTIGATOR documented in this encounter Plan of Treatment [...] documented as of this encounter Care Teams Manager Hair Relationship Specialty Start Date End Date Raya Bruno PA-C [address] [place] [address] ИРИН[place] JAIME [address] PCP - General Internal Medicine 10/05/21 02/26/23 [facility]- [address] [place] [address] PCP - General 02/27/23 Raya Bruno PA-C [address] [place] [address] ИРИНА JAIME [address]6580 Hospitalist Internal Medicine 11/16/21 Dara Morillo GC [address] [place] [address] 9[address] Genetic Counselor Genetic Counselor, MS 11/16/21 Raya Bruno PA-C [address] [place] [address] ИРИАН JAIME 88516 Assigned PCP 10/28/21 Thuan Alarcon MD [address] [address] Assigned Musculoskeletal Provider 12/04/21 [place] Blandon MD 500 [place] [address] Assigned Gastroenterology Provider 02/05/22 08/12/23 Thuan Sood MD [address] [place] [address] 67385 Assigned Surgical Provider 08/06/22 Barbara Rivera PA-C 700 [place], [place] 145275 Assigned Surgical Provider 03/16/23 Thuan Sood MD 909 [place], [place] [address] Urology 04/14/23 documented as of this encounter
--- OUTSIDE RECORDS SUMMARY | 2023-09-26 08:07 | XMS_ITS | Encounter Summary ---
Author Organization [place] Address [address] [place] [address]262 Care Team Providers Care Group Leader Name Role Phone Raya Bruno PA-C Unavailable [phone] Dara Morillo GC Unavailable [phone] Raya BrunoC Unavailable [phone] Thuan Alarcon MD Unavailable [facility]- Primary Care Provider Barbara RiveraC Unavailable Thuan Sood MD Unavailable Reason for Visit * Reason Comments Medication Refill Encounter Details Date Type Department Care Team (Late st Contact Info) Description 09/02/[address] [place] [phone] Raya Bruno PA-C [address] [place] [address] ИРИН[place] JAIME [address]90 Medication Refill Social History Tobacco Use Types [...] encounter Miscellaneous Notes * Telephone Encounter - Soniya Rucker RN - 09/05/2023 3:59 PM CDT Multiple encounters for refills. Pt called on separate encounter. Upon c/b: please let pt know that she needs to request refills from new PCP. Soniya Rucker RN * Telephone Encounter - Raya Bruno PA-C - 09/04/2023 11:18 AM CDT [facility]ills should be sent to new PCP documented in this encounter Plan of Treatment Not on file documented as of this encounter Goals Goal Patient Goal Type Associated Problems Recent Progress Patient-Stated? 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 documented as of this encounter Care Teams Group Leader Relationship Specialty Start Date End Date [facility]- [address] [place] [address] PCP - General 02/27/23 Raya Bruno PA-C [address] [facility] [place] [address] Hospitalist Internal Medicine 11/16/21 Dara Morillo GC [address] [place] [address] Genetic Counselor Genetic Counselor, MS 11/16/21 Raya Bruno PA-C [address] [facility] [place] [address] Assigned PCP 10/28/21 Thuan Alarcon MD 420 [facility] 292 [place] [address] Assigned Musculoskeletal Provider 12/04/21 Barbara Rivera PAMarcellaC 700 [place] [address] Assigned Surgical Provider 03/16/23 Thuan Sood MD [address] [place] [address] Urology 04/14/23 documented as of this encounter
--- OUTSIDE RECORDS SUMMARY | 2023-09-26 08:07 | XMS_ITS | Encounter Summary ---
Author Organization [place] Address [address] [place] [address] Care Team Providers Care Pipe Fitter Supervisor Name Role Phone Raya Bruno PA-C Primary Care Provider + [phone] Raya Bruno PA-C Unavailable [phone] Dara Morillo GC Unavailable [phone] Raya Bruno-C Unavailable [phone] Thuan Alarcon MD Unavailable Barber Denton MD, [place] Unavailable [phone] Thuan Sood MD Unavailable [phone] [facility]- Primary Care Provider Barbara Rivera PA-C Unavailable [phone] Thuan Sood MD Unavailable [phone] Encounter Details Date Type Department Care Team (Late st Contact Info) Description 10/13/[address] [facility] Medical Advice [place] Centralized Scheduling [id number] [place] [phone] Dhruv Gallo Social History Tobacco Use Types Packs/Day Years [...] Recorded In the last 10 days, have triny u been in contact with someone who was confirmed or suspected to have Coronavirus/COVID-19? No / Unsure 10/12/2022 10:28 AM CDT documented as of this encounter [...] documented as of this encounter Care Teams Pipe Fitter Supervisor Relationship Specialty Start Date End Date Raya Bruno PA-C [address] [place] [address] ИРИНА JAIME [address] PCP - General Internal Medicine 10/05/21 02/26/23 [facility]- [address] [address] PCP - General 02/27/23 Raya Bruno PA-C [address] [place] [address] ИРИН[place] JAIME [address]11 Hospitalist Internal Medicine 11/16/21 Dara Morillo GC [address] [place] [address] Genetic Counselor Genetic Counselor, MS 11/16/21 Raya Bruno PA-C [address] [place] [address] ИРИН[place] JAIME 07426 Assigned PCP 10/28/21 Thuan Alarcon MD [address] [place] [address]10 Assigned Musculoskeletal Provider 12/04/21 [place] Blandon MD [address] [place] [address] Assigned Gastroenterology Provider 02/05/22 08/12/23 Thuan Sood MD [address] [place] [address] 278645 Assigned Surgical Provider 08/06/22 Barbara Rivera PA-C [address] [place] [address] 795255 Assigned Surgical Provider 03/16/23 Thuan Sood MD [address] [place] [address] 928065 Urology 04/14/23 documented as of this encounter
--- OUTSIDE RECORDS SUMMARY | 2023-09-26 08:07 | XMS_ITS | Encounter Summary ---
Author Organization [place] Address [address] [place] [address]67 Care Team Providers Care Supervisor Drapery Hanging Name Role Phone Raya Bruno PA-C Primary Care Provider + [phone] Raya Bruno PA-C Unavailable [phone] Dara Morillo GC Unavailable [phone] Raya Bruno-C Unavailable [phone] Thuan Alarcon MD Unavailable Barber Denton MD, [place] Unavailable [phone] Thuan Sood MD Unavailable [phone] [facility]- Primary Care Provider Barbara Rivera PA-C Unavailable [phone] Thuan Sood MD Unavailable [phone] Encounter Details Date Type Department Care Team (Late st Contact Info) Description 02/03/2022 [facility] Medical Advice [facility] [address] [place] [address] Rosa Bruno, RN Social History Tobacco Use Types Packs/Day Years [...] documented as of this encounter Care Teams Supervisor Drapery Hanging Relationship Specialty Start Date End Date Raya Bruno PA-C [address] [place] [address] ИРИНА JAIME 99591 PCP - General Internal Medicine 10/05/21 02/26/23 [facility]- [address] [place] [address] PCP - General 02/27/23 Raya Bruno PA-C [address] [place] [address] ИРИНА JAIME 68165 Hospitalist Internal Medicine 11/16/21 Dara Morillo GC [address] [place] [address] Genetic Counselor Genetic Counselor, MS 11/16/21 Raya Bruno PA-C [address] [place] [address] ИРИНА JAIME 43001 Assigned PCP 10/28/21 Thuan Alarcon MD [address] [place] [address] 10135 Assigned Musculoskeletal Provider 12/04/21 [place] Blandon MD [address] [place] [address] Assigned Gastroenterology Provider 02/05/22 08/12/23 Thuan Sood MD [address] [place] [address] 46425 Assigned Surgical Provider 08/06/22 Barbara Rivera PA-C [address] [place] [address] 27280 Assigned Surgical Provider 03/16/23 Thuan Sood MD [address] [place] [address] Urology 04/14/23 documented as of this encounter
--- OUTSIDE RECORDS SUMMARY | 2023-09-26 08:07 | XMS_ITS | Encounter Summary ---
Author Organization [place] Address [address] [place] [address]59 Care Team Providers Care Dermatologist Managing Partner Name Role Phone Raya BrunoC Unavailable [phone] Dara Morillo GC Unavailable [phone] Raya Bruno-C Unavailable [phone] Thuan Alarcon MD Unavailable Barber Denton MD, [place] Unavailable [phone] [facility]- Primary Care Provider Barbara Rivera-C Unavailable Thuan Sood MD Unavailable [phone] Reason for Visit * Reason Comments Medication Refill Encounter Details Date Type Department Care Team (Late st Contact Info) Description 07/18/2023 Refill [facility] [place] [address] [place] [address] [place] [phone] Raya Bruno PA-C [address] [place] [address] ИРИНА JAIME 01889 Medication Refill Social History Tobacco Use Types [...] as of this encounter Visit Diagnoses Diagnosis 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) documented in this encounter Additional Health Concerns Active Problems Noted Date Diagnosed Date 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 documented as of this encounter Care Teams Dermatologist Managing Partner Relationship Specialty Start Date End Date [facility]- [address] [place] [address] PCP - General 02/27/23 Raya Bruno PA-C [address] [place] [address] ИРИНА JAIME 05916 Hospitalist Internal Medicine 11/16/21 Dara Morillo GC [address] [place] [address] 876404 Genetic Counselor Genetic Counselor, MS 11/16/21 Raya Bruno PA-C [address] [place] [address] ИРИНА JAIME 43295 Assigned PCP 10/28/21 Thuan Alarcon MD 420 [facility] 292 [place] [address] Assigned Musculoskeletal Provider 12/04/21 [place] Blandon MD 500 [place] [address] Assigned Gastroenterology Provider 02/05/22 08/12/23 Barbara Rivera PA-C 700 [place], [place] 436475 Assigned Surgical Provider 03/16/23 Thuan Sood MD 909 [place], [place] 111365 Urology 04/14/23 documented as of this encounter
--- OUTSIDE RECORDS SUMMARY | 2023-09-26 08:07 | XMS_ITS | Encounter Summary ---
Author Organization [place] Address [address] [place] [address] Care Team Providers Care Director Home Name Role Phone Raya Bruno PA-C Primary Care Provider + [phone] Raya Bruno-Mary Unavailable [phone] Dara Morillo GC Unavailable [phone] Raya Bruno-C Unavailable [phone] Thuan Alarcon MD Unavailable Barber Denton MD, [place] Unavailable [phone] Thuan Sood MD Unavailable [phone] [facility]- Primary Care Provider Barbara Rivera PA-C Unavailable [phone] Thuan Sood MD Unavailable [phone] Encounter Details Date Type Department Care Team (Late st Contact Info) Description 08/26/2022 Telephone [facility] [address] 4th [place] [address] Thuan Sood MD [address] [place] [address] Social History Tobacco Use Types Packs/Day [...] suspected to have Coronavirus/COVID-19? No / Unsure 08/26/2022 2:53 PM CDT documented as of this encounter [...] documented as of this encounter Care Teams Director Home Relationship Specialty Start Date End Date Raya Bruno PA-C [address] [place] [address] ИРИНА JAIME [address] PCP - General Internal Medicine 10/05/21 02/26/23 [facility]- [address] [place] [address] PCP - General 02/27/23 Raya Bruno PA-C [address] [place] [address] ИРИНА JAIME 43636 Hospitalist Internal Medicine 11/16/21 Dara Morillo GC [address] [place] [address] 932[address] Genetic Counselor Genetic Counselor, MS 11/16/21 Raya Bruno PA-C [address] [place] [address] ИРИНА JAIME 82941 Assigned PCP 10/28/21 Thuan Alarcon MD [address] [place] [address] 30569 Assigned Musculoskeletal Provider 12/04/21 [place] Blandon MD [address] [place] [address] Assigned Gastroenterology Provider 02/05/22 08/12/23 Thuan Sood MD [address] [place] [address] 89771 Assigned Surgical Provider 08/06/22 Barbara Rievra PAMarcellaC [address] [place] [address] 22102 Assigned Surgical Provider 03/16/23 Thuan Sood MD [address] [place] [address] 8[address] Urology 04/14/23 documented as of this encounter
--- OUTSIDE RECORDS SUMMARY | 2023-09-26 08:07 | XMS_ITS | Encounter Summary ---
Author Organization [place] Address [address] [place] [address] Care Team Providers Care Hobbing Machine Operator Name Role Phone Raya BrunoC Unavailable [phone] Dara Morillo GC Unavailable [phone] Raya Bruno-C Unavailable [phone] Thuan Alarcon MD Unavailable Barber Denton MD, [place] Unavailable [phone] [facility]- Primary Care Provider Barbara Rivera-C Unavailable [phone] Thuan Sood MD Unavailable [phone] Reason for Visit * Reason Comments Medication Refill Encounter Details Date Type Department Care Team (Late st Contact Info) Description 08/08/2023 Refill [facility] [place] [address] [place] [address] [place] [phone] Raya Bruno PA-C [address] [place] [address] ИРИНА JAIME 95229 Medication Refill Social History Tobacco Use Types [...] Telephone Encounter - Raya Bruno PA-C - 08/09/2023 7:55 AM CDT Patient has transferred care to different health system - refills should be sent to new PCP [...] documented as of this encounter Care Teams Hobbing Machine Operator Relationship Specialty Start Date End Date [facility]- [address] [place] [address] PCP - General 02/27/23 Raya Bruno PA-C [address] [place] [address] ИРИНА JAIME 10928 Hospitalist Internal Medicine 11/16/21 Dara Morillo GC [address] [place] [address] 990924 Genetic Counselor Genetic Counselor, MS 11/16/21 Raya Bruno PA-C [address] [place] [address] ИРИНА JAIME 73572 Assigned PCP 10/28/21 Thuan Alarcon MD [address] [place] [address] 38212 Assigned Musculoskeletal Provider 12/04/21 [place] Blandon MD [address] [place] [address] Assigned Gastroenterology Provider 02/05/22 08/12/23 Barbara Rivera, PA-C [address] [place] [address] Assigned Surgical Provider 03/16/23 Thuan Sood MD [address] [place] [address] Urology 04/14/23 documented as of this encounter
--- OUTSIDE RECORDS SUMMARY | 2023-09-26 08:07 | XMS_ITS | Encounter Summary ---
Author Organization [place] Address [address] [place] [address]96 Care Team Providers Care Photography Editor Name Role Phone Raya Bruno PA-C Unavailable [phone] Dara Morillo GC Unavailable Raya BrunoC Unavailable [phone] Thuan Alarcon MD Unavailable [facility]- Primary Care Provider Barbara RiveraC Unavailable Thuan Sood MD Unavailable [phone] Reason for Visit * Reason Comments Medication Refill Encounter Details Date Type Department Care Team (Late st Contact Info) Description 08/30/[address] [place] [phone] Raya Bruno PA-C [address] [place] [address] ИРИНА JAIME 75049 Medication Refill Social History Tobacco Use Types [...] as of this encounter Visit Diagnoses Diagnosis Essential hypertension Unspecified essential hypertension documented in this encounter Additional Health Concerns Active Problems Noted Date Diagnosed Date 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 documented as of this encounter Care Teams Photography Editor Relationship Specialty Start Date End Date [facility]- [address] [place] [address] PCP - General 02/27/23 Raya Bruno PA-C [address] [place] [address] [place] [address] Hospitalist Internal Medicine 11/16/21 Dara Morillo GC [address] [place] [address] Genetic Counselor Genetic Counselor, MS 11/16/21 Raya Brnuo PA-C [address] [place] [address] ИРИНА JAIME 23453 Assigned PCP 10/28/21 Thuan Alarcon MD [address] [place] [address] Assigned Musculoskeletal Provider 12/04/21 Barbara Rivera PA-C [address] [place] [address] 65088 Assigned Surgical Provider 03/16/23 Thuan Sood MD [address] [place] [address] 51457 Urology 04/14/23 documented as of this encounter
--- OUTSIDE RECORDS SUMMARY | 2023-09-26 08:07 | XMS_ITS | Encounter Summary ---
Author Organization [facility] Address [address] [place] [address] Care Team Providers Care Tool Storage Attendant Name Role Phone Raya Bruno PA-C Primary Care Provider + [phone] Raya Bruno PA-C Unavailable [phone] Dara Morillo GC Unavailable [phone] Raya Bruno-C Unavailable [phone] Thuan Alarcon MD Unavailable Barber Denton MD, [place] Unavailable [phone] Thuan Sood MD Unavailable [phone] [facility]- Primary Care Provider Barbara Rivera PA-C Unavailable [phone] Thuan Sood MD Unavailable [phone] Encounter Details Date Type Department Care Team (Late st Contact Info) Description 02/25/2022 [facility] Medical Advice [facility] Orthopedic [address] 4[address] [place] [address] Rene Santamaria Social History Tobacco Use Types Packs/Day Years [...] Coronavirus/COVID-19? No / Unsure 02/18/2022 11:29 AM TWISTER DOFFER documented as of this encounter Plan of Treatment Not on file documented as of this encounter Goals Goal Patient Goal Type Associated Problems Recent Progress Patient-Stated? 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 11/14/2022 11/15/202212/05 11:39 PM CDT documented as of this encounter Care Teams Tool Storage Attendant Relationship Specialty Start Date End Date Raya Bruno PA-C [address] [place] [address] ИРИНА JAIME [address] PCP - General Internal Medicine 10/05/21 02/26/23 [facility] [address] [place] [address] PCP - General 02/27/23 Raya Bruno PA-C [address] [place] [address] ИРИНА JAIME [address] Hospitalist Internal Medicine 11/16/21 Dara Morillo GC [address] [place] [address] Genetic Counselor Genetic Counselor, [place] 11/16/21 Raya Bruno PA-C [address] [place] [address] ИРИНА JAIME [address] Assigned PCP 10/28/21 Thuan Alarcon MD [address] [place] [address] [address] [place] [address] Assigned Musculoskeletal Provider 12/04/21 [place] Blandon MD [address] [place] [address] Assigned Gastroenterology Provider 02/05/22 08/12/23 Thuan Sood MD [address] [place] [address] Assigned Surgical Provider 08/06/22 Barbara Rivera, PAMarcellaC [address] [place] [address] Assigned Surgical Provider 03/16/23 Thuan Sood MD [address] [place] [address] Urology 04/14/23 documented as of this encounter
--- OUTSIDE RECORDS SUMMARY | 2023-09-26 08:07 | XMS_ITS | Referral Summary ---
Author Organization [facility] Address [address] [place] [address] Care Team Providers Care Casey Saw Operator Name Role Phone Raya Bruno PA-C Unavailable Dara Morillo GC Unavailable [phone] Raya Bruno PA-C Unavailable [phone] Thuan Alarcon MD Unavailable [facility]- Primary Care Provider Barbara Rivera PA-C Unavailable Thuan Sood MD Unavailable Encounters Date Type Department Care Team Description 09/02/2023 Refill M [address] [address] Raya Bruno PA-C Medication Refill 09/01/2023 Refill M [address] [address] Raya Bruno PA-C Medication Refill 08/30/[address] [address] Raya Bruno PA-C Medication Refill 08/08/2023 Refill M [address] [address] Raya Bruno PA-C Medication Refill 07/18/2023 Refill [facility] Luz Don [address] [facility] [place] [address] Raya Bruno PA-C Medication Refill from Last 3 Months Allergies Active Allergy Reactions Criticality Noted Date [...] TABLET BY MOUTH EVERY DAY 90 tablet 4 08/30/19 24 Discontinued Active Problems Problem Noted Date Diagnosed Date Diastolic dysfunction 09/23/2022 Overview: Grade I, found on echocardiogram 09/2022 Acute chest pain 08/26/2022 Calculus of kidney 08/02/2022 Overview: Added automatically from request for surgery [id number] Aftercare following left knee joint replacement surgery 04/19/2022 Primary osteoarthritis of left knee 03/22/2022 Overview: Added automatically from request for surgery [id number] Benign essential tremor 11/12/2021 Compression of cauda equina due to stenosis of l umbar spine 11/12/2021 History of kidney stones 11/12/2021 Age-related osteoporosis wit hout current pathological fracture 11/10/2021 Mariscal's esophagus 11/10/2021 Hypertension 10/31/2016 Mixed hyperlipidemia 10/07/2015 Reflux esophagitis 02/03/2004 Immunizations Name Administration Dates Next Due COVID-19 [...] (Adult), Adsorbed 02/20/2002,02/05/2002 Zoster vaccine, live 03/02/2011 Social History Tobacco Use Types Packs/Day Years [...] Comments Blood Pressure 123/78 01/20/2023 11:20 AM HEALTHCARE RECEPTIONIST Pulse 79 01/20/2023 11:20 AM HEALTHCARE RECEPTIONIST Temperature 37 ??C (98.6 ??F) 09/30/2022 11:17 AM CDT Respiratory Rate 14 09/30/2022 11:17 AM CDT Oxygen Saturation 97% 01/20/2023 11:20 AM HEALTHCARE RECEPTIONIST Inhaled Oxygen Concentration - - Weight 47.2 kg (104 lb) 10/21/2022 2:00 PM CDT p er pt Height 147.3 cm (4' 10) 10/21/2022 2:00 PM CDT per pt Body Mass Index 21.74 10/21/2022 2:00 PM CDT Plan of Treatment Not on file Goals Goal Patient Goal Type Associated Problems Recent Progress Patient-Stated? Author 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 Care Plan 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 No Rene Santamaria Medical Devices Implanted Type Area Didactic Instructor Device Identifier Shelf Expiration Date Model / Serial / Lot Bone Cement Simplex Full Dose 6191-1-001 - [id number] Implanted:Qty: 1 on 04/05/2022 by Thuan Alarcon MD at [facility] Cement, Bone Left: Knee [employer] [id number] 07/20/2024 6191-1-001 / / [id number] Stent, Ureteral, 6fr X 22cm, Hydroplus Coating, Positioner, Without Fire, Percuflex Plus - [id number] Implanted:Qty: 1 on 08/26/2022 by Thuan Sood MD at [facility] Stent Left: Ureter 10/07/2022 [id number] / / [id number] Link Sled Prosthesis Implanted:Qty: 1 on 04/05/2022 by Thuan Alarcon MD at [facility] Left: Knee [id number] 10/20/2024 FEMORAL COMPONENT / / Link Sled Prosthesis Implanted:Qty: 1 on 04/05/2022 by Thuan Alarcon MD at [facility] Left: Knee [id number] 10/20/2025 TIBIAL COMPONENT / / [id number] Procedures Procedure Name Priority Date/Time Associated Diagnosis Comments COMPREHENSIVE METABOLIC PANEL Routine 09/30/2022 12:14 PM CDT Primary hypertension LIPID REFLEX TO DIRECT LDL PANEL Routine 09/30/2022 12:14 PM CDT Mixed hyperlipidemia COLONOSCOPY Routine 02/11/2022 10:23 AM HEALTHCARE RECEPTIONIST MA SCREENING WITH IMPLANTS BILATERAL W/ CELESTINE Routine 12/07/2021 11:34 AM CDT Visit for [...] LAB - BLOOD ORDERA [facility]ES [facility] [place] Core Lab [address] [facility], [address] [address], [facility] [phone] * Comprehensive metabolic panel (09/30/2022 12:14 PM CDT) Pathologist [facility] Sodium 140 136 - 145 mmol/L 09/30/2022 [...] LAB - BLOOD ORDERA BLES [facility] Core Lab [address] [facility], [address] [address], [facility] [phone] * COLONOSCOPY (02/11/2022 10:23 AM HEALTHCARE RECEPTIONIST) [place] [address] [address] ??ИРИНА Farfan ??[address] Patient Name: Florence Winn ?Procedure Date: 02/11/2022 10:23 AM ? Date of : 1955 ?Admit Type: Outpatient Age: 66 ? Room: [place] [address] Note Status: Finalized ?Attending MD: RINKU MEDRANO [...] ? K64.8, Other hemorrhoids CPT copyright 2020 [employer]. All rights reserved. The codes documented in this report are preliminary and upon residential mortgage underwriter review may be revised to meet current [...] AM RADIOLOGY RESULTS 02/11/2022 10:2 3 AM HEALTHCARE RECEPTIONIST Raya Bruno PA-C PROCEDURES RADIOLOGY RESULTS * MA Screen with Implants Bilateral w/Celestine (12/07/2021 11:34 AM CDT) Anatomical Region Laterality Modality Breast Bilateral Mammography Impressions 12/09/2021 8:46 AM CDT IMPRESSION: ACR BI-RADS Category 2: Benign RECOMMENDED FOLLOW-UP: Annual routine screening mammogram The results and recommendations of this examination will be communicated to the patient. Chong Salomon Kristian Narrative 12/09/2021 8:46 AM CDT BILATERAL FULL FIELD DIGITAL SCREENING MAMMOGRAM WITH TOMOSYNTHESIS Performed on: 12/07/21 Compared to: 08/19/2015 Technique: ??This study was evaluated with the assistance of Computer-Aided Detection. ??Breast Tomosynthesis was used in interpretation. Findings: The breasts are heterogeneously dense, which may obscure small masses. ??There are breast augmentation changes in both breasts. There is no radiographic evidence of malignancy. Raya Bruno PA-C IMG MAMMOGRAPHY OR DERABLES from Last 3 Months or Most Recently Relevant to Health Maintenance Additional Health Concerns Active Problems Noted Date Diagnosed Date 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 Care Teams Casey Saw Operator Relationship Specialty Start Date End Date [facility]- [address] [place] [address] PCP - General 02/27/23 Raya Bruno PA-C [address] [place] [address] ИРИНА JAIME [address] Hospitalist Internal Medicine 11/16/21 Dara Morillo GC [address] [place] [address] Genetic Counselor Genetic Counselor, MS 11/16/21 Raya Bruno PA-C [address] [facility] [place] [address] Assigned PCP 10/28/21 Thuan Alarcon MD [address] [facility] [address] [place], [place] [address] Assigned Musculoskeletal Provider 12/04/21 Barbara Rivera PA-C [address] [place], [place] [address] Assigned Surgical Provider 03/16/23 Thuan Sood MD [address] [place], [place] [address] Urology 04/14/23
--- OUTSIDE RECORDS SUMMARY | 2023-09-26 08:07 | XMS_ITS | Encounter Summary ---
Author Organization [facility] Address [address] [place] [address] Care Team Providers Care Gizzard Peeler Name Role Phone Raya Bruno PA-C Primary Care Provider Raya Bruno PA-C Unavailable [phone] Dara Morillo GC Unavailable [phone] Raya Bruno PA-C Unavailable [phone] Thuan Alarcon MD Unavailable Barber Denton MD, [place] Unavailable [phone] Thuan Sood MD Unavailable [phone] [facility]- Primary Care Provider Barbara Rivera PA-C Unavailable Thuan Sood MD Unavailable [phone] Encounter Details Date Type Department Care Team (Late st Contact Info) Description 08/19/2022 [facility] [address] [place] [address] [place] [phone] Raya Bruno PA-C [address] [place] [address] ИРИНА JAIME [address] Social History Tobacco Use Types Packs/Day Years [...] suspected to have Coronavirus/COVID-19? No / Unsure 08/19/2022 12:25 PM CDT documented as of this encounter [...] documented as of this encounter Care Teams Gizzard Peeler Relationship Specialty Start Date End Date Raya Bruno PA-C [address] [place] [address] ИРИНА JAIME [address] PCP - General Internal Medicine 10/05/21 02/26/23 [facility]- [address], [place] [address] PCP - General 02/27/23 Raya Bruno PA-C [address] [place] [address] ИРИНА JAIME [address] Hospitalist Internal Medicine 11/16/21 Dara Morillo GC [address] [place] [address] Genetic Counselor Genetic Counselor, MS 11/16/21 Raya Bruno PA-C [address] [place] [address] ИРИНА JAIME [address] Assigned PCP 10/28/21 Thuan Alarcon MD [address] [place] [address] Assigned Musculoskeletal Provider 12/04/21 [place] Blandon MD [address] [place] [address] Assigned Gastroenterology Provider 02/05/22 08/12/23 Thuan Sood MD [address] [place] [address] Assigned Surgical Provider 08/06/22 Barbara Rivera, PAMarcellaC [address] [place] [address] Assigned Surgical Provider 03/16/23 Thuan Sood MD [address] [place] [address] Urology 04/14/23 documented as of this encounter
--- OUTSIDE RECORDS SUMMARY | 2023-09-26 08:08 | XMS_ITS | Continuity of Care Document ---
Author Organization [facility] Address [address] [place] [address] Phone Care Team Providers Care Armature Rewinder Name Role Phone Deven Milton O.D. Unavailable Unavailab le Allergies, Adverse Reactions, Alerts Substance Reaction Status Criticality NITROFURANTOIN MACROCRYSTALLINE Active No Information nitrofurantoin Active No Informatio n Medications Medication Instructions Dosage Effective Dates (start - stop) Status Comments Dexilant 30 mg capsule, delayed release take 1 capsule by oral route every day swallowing whole. Do not crush, chew and/or divide. 30 MG - Active IMITREX (unknown strength) take 1 tablet by oral route once with fluids as early as possible after the onset of a migraine attack;may repeat after 2 hours if headache returns, not to exceed 200mgin 24hrs Not Available - Active Procedures Procedure Date REFRACTION EYE EXAM- Established Patient EYE EXAM, NEW PATIENT REFRACTION Advance Directives Directive Yes / No Effective Date File Name No Information Encounters Encounter Description Practice Location Reason(s) For Visit Diagnoses Date Provider Providers Copied on Encounter [facility], [address] [place] [address], [id number] , [phone] [facility] pain (chief complaint) Ocular pain of left [id number]-VO 5 Yoan Carvalho. [address] [place] [address], [id number] , [place]. tel:[phone] Referring Provider: Deven Ball, [address] [place] [address], [id number] . tel:[phone] [facility], [address] [place] [address], [id number] , tel:[phone] [facility] Senile nuclear sclerosisPresbyopia 4 Yoan Deven. [address] [place] [address], [address] [place] [address] , [place]. tel:[phone] Referring Provider: Deven Ball, [address] [place] [address], [id number] . tel:[phone] [facility], [address] [place] [address], [id number] , tel:[phone] [facility] No Information Nov-3 4 Patiencemagan Carvalho. [address] [place] [address], [address] [place] [address] , [place]. tel:[phone] [facility], [address] [place] [address], [address] [place] [address] , tel:[phone] [facility] Foreign body in conjunctival sac Nov- 4 Yoan Deven. [address] [place] [address], [address] [place] [address] , [place]. tel:[phone] Referring Provider: Deven Ball, [address] [place] [address], [id number] . tel:[phone] Family History Family Member Type Diagnosis Age At Onset Multiple Problem (finding) cataract Father Problem (finding) degenerative disorder o f macula Payers Payer name Insurance type Covered republican ID Authoriza tion(s) [employer] CI [id number] Social History Type Description Quantity Date Captured Comments Alcohol Use Details No Caffeine Use Details coffee 2 cups per day Tobacco Use Status No Information Smoking Status Never smoker Non-Smoking Tobacco Use Details : No Details Available : No Details Available Sex Female Chief Complaint And Reason For Visit From encounter dated '01/09/2015 18:20'. pain (chief complaint). Description: pt is here today for an evaluation of her left eye. She has been having sharp stabing pain in the back of her left eye. It started anout 2 weeks ago and happens several times a day. No blurry vision. Reason For Referral Reason For Referral No Information History Of Present Illness Encounter Date Complaint History Of Prese nt Illness pain pt is here today for an evaluation of her left eye. She has been having sharp stabing pain in the back of her left eye. It started anout 2 weeks ago and happens several times a day. No blurry vision. Functional Status Date Functional Assessmen t No Information Instructions Date Instruction Additional Infor mation Return in 1-2 years with Deven Milton, OD for Complete Exam. Related to 1-Myopia-OU Follow up - Return i n 1-2 years with Deven Milton, OD for Complete Exam. Related to 1-Myopia-OU Impression/Plan - Ne w glasses Rx was given today. Related to 1-Myopia-OU Impression/Plan - Di scussed diagnosis in detail with patient. Rec f/u with dentist. Related to Ocular pain of left eye - Return in 1-[address] Milton for Complete Exam. Related to Presbyopia Presbyopia - New gla sses Rx was given today. Related to Presbyopia Cataract, Nuclear Sc lerosis - Surgery not indicated, will monitor. 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 Removed FB in office. Patient instructed to use artificial tears as needed. Related to FB-Conjunctival Assessments Type Assessment Date impression Ocular pain of left eye: H57.12. -- no ocular cause noted -- suspect dissociated pain from dental assessment Ocular pain of left eye 015 assessment 1-Myopia-OU impression 1-Myopia-OU: H52.13. Patient Care Teams Name Effective Dates (start - stop) Status Members No Information
--- OUTSIDE RECORDS SUMMARY | 2023-09-26 08:08 | XMS_ITS | Continuity of Care Document ---
Author Organization [facility] Address [address] [place] [address] Phone Care Team Providers Care Corporate Traffic Manager Name Role Phone Yuli Robison MD Unavailable Unavailable Allergies, Adverse Reactions, Alerts Substance Reaction Status Criticality NITROFURANTOIN MACROCRYSTALLINE Rash Active No Information nitrofurantoin Rash Active No Informatio n Medications Medication Instructions Dosage Effective Dates (start - stop) Status Comments DEXILANT (unknown strength) take 1 capsule by oral route every day swallowing whole. Do not crush, chew and/or divide. Not Available - Active sumatriptan 100 mg tablet take 1 tablet (100MG) by oral route as needed 100 MG - Active Vivelle-Dot 0.1 mg/24 hr Transderm Patch apply 1 patch by transdermal route 2 times every week 1.00 patch - Active Vesicare 5 mg tablet take 1 tablet (5MG) by oral route every day 5 MG - Active progesterone micronized 100 mg capsule take 1 Capsule (100MG) by oral route every day - Active PROBIOTIC (unknown strength) take 1 by Oral route every day Not Available - Active CO Q-10 (unknown strength) take 1 by Oral route every day Not Available - Active FISH OIL (unknown strength) take 1 Capsule by Oral route every day Not Available - Active aspirin 81 mg tablet,delayed release take 1 tablet (81MG) by oral route every day 81 MG - Active multivitamin tablet take 1 tablet by oral route every day with food - Active Protonix 40 mg tablet,delayed release take 1 tablet (40MG) by oral route every day 40 MG - No Longer Active Procedures Procedure Date Office/Outpatient Visit, Est Office/Outpatient Visit, New Advance Directives Directive Yes / No Effective Date File Name No Information Encounters Encounter Description Practice Location Reason(s) For Visit Diagnoses Date Provider Providers Copied on Encounter [facility] , [address], [place], [address], [place] tel:[phone] [facility] , No Information 4 Enriqueta Roldan. [facility] [address], [place], [address], [place]. tel:[phone] Office/Outpa tient Visit, Est [facility] , [address], [place], [address], [place] tel:[phone] [facility] , Raynaud's Syndrome (chief complaint)Os teoarthritis (chief complaint)Ne ck Pain (chief complaint) Osteoarthrit is, GeneralizedR aynaud's SyndromeCerv icalgia 4 Enriqueta Roldan. [facility] [address], [place], [address], [place]. tel:[phone] Referring Provider: Yuli Corrigan, [facility] [address], [place], [address]. tel:[phone] Office/Outpa tient Visit, New [facility] , [address], [place], [address], [place] tel:[phone] [facility] polyarthralg ia (chief complaint)Ne ck Pain (chief complaint)Ra ynaud's Syndrome (chief complaint)hi story of +IRAM (chief complaint) Pain in joint involving handCervical giaOsteoarth ritis, GeneralizedO ther and unspecified nonspecific immunologica l findingsRayn aud's Syndrome 4 Enriqueta Roldan. [facility] [address], [place], [address], [place]. tel:[phone] Referring Provider: Yuli Corrigan, [facility] [address], [place], [address]. tel:[phone] [facility] , [address], [place], [address], [place] tel:[phone] [facility] , No Information 0-201 4 Enriqueta Roldan. [facility] [address], [place], [address], [place]. tel:[phone] Family History Family Member Type Diagnosis Age At Onset Problem (finding) Family history of hyper tension Problem (finding) arthritis Problem (finding) cancer Problem (finding) Problem (finding) heart disease Payers Payer name Insurance type Covered republican ID Elsa martinez(s) [facility] [id number] Social History Type Description Quantity Date Captured Comments Sex Female Smoking Status No Information Chief Complaint And Reason For Visit No Information Reason For Referral Reason For Referral No Information History Of Present Illness Encounter Date Complaint History Of Prese nt Illness No Information Functional Status Date Functional Assessmen t No Information Instructions Date Instruction Additional Infor mation No Information Assessments Type Assessment Date No Information Patient Care Teams Name Effective Dates (start - stop) Status Members No Information
--- OUTSIDE RECORDS SUMMARY | 2023-09-26 08:08 | XMS_ITS | Data Portability ---
Author Organization [facility], [facility] Address [address] [place] [address] Care Team Providers Care An/Ssn 2 4 Operator Name Role Phone PERLA PRAKASH Primary Care Provider Assessment No assessment recorded. Plan of Treatment Reminders Order Date Submit Date Provider Last Modified By Organization Details Last Modified Time Details Appointments None recorded. Lab urinalysi s, dipstick 2023 [facility], [address], [place], [address], 11:06:34 Referral None recorded. Procedures None recorded. Surgeries None recorded. Imaging CT, abdomen + pelvis, w/o contrast - NO PREV 2023 [facility] , [address], [place], [address], 4 16:51:19 Medication Orders cephalexi n 500 mg capsule 2023 024 [id number], [address] [place], [address], 11:10:36 Patient TargetsNo targets recorded. Patient InstructionsNo instructions recorded. Reason for Referral None Reported. Results Created Date Observation Date Name Description Value Unit Range Abnormal Flag LastModifiedBy Organization Detail LastModifiedTime 07/06/19 24 07/06/2023 urina lysis , dipst ick BLOOD Negati ve Not Available [facility] [address], [place], [address], 07/06/2023 10:29:07 07/06/19 24 07/06/2023 urina lysis , dipst ick BILIRUBIN Negati ve Not Available [facility] [address], [place], [address], 07/06/2023 10:29:07 07/06/19 24 07/06/2023 urina lysis , dipst ick UROBILINOGEN 0.2 mg/dL (Norm) Not Available [facility] [address], [place], [address], 07/06/2023 10:29:07 07/06/19 24 07/06/2023 urina lysis , dipst ick KETONES Negati ve Not Available [facility] [address], [place], [address], 07/06/2023 10:29:07 07/06/19 24 07/06/2023 urina lysis , dipst ick PROTEIN Negati ve Not Available [facility] [address], [place], [address], 07/06/2023 10:29:07 07/06/19 24 07/06/2023 urina lysis , dipst ick NITRITES Negati ve Not Available [facility] [address], [place], [address], 07/06/2023 10:29:07 07/06/19 24 07/06/2023 urina lysis , dipst ick GLUCOSE Negati ve Not Available [facility] [address], [place], [address], 07/06/2023 10:29:07 07/06/19 24 07/06/2023 urina lysis , dipst ick p.H. 7.5 Not Available [facility] [address], [place], [address], 07/06/2023 10:29:07 07/06/19 24 07/06/2023 urina lysis , dipst ick S.G. (Specific [place]) 1.015 Not Available [facility] [address], [place], [address], 07/06/2023 10:29:07 07/06/19 24 07/06/2023 urina lysis , dipst ick LEUKOCYTES Negati ve Not Available [facility] [address], [place], [address], 07/06/2023 10:29:07 07/12/19 24 07/12/2023 CT, abdom en + pelvi s, w/o contr ast EXAM: CT, ABDOME N + PELVIS , W/O CONTRA ST [facility]AT[facility]: [facility] DATE: 024 INDICA TION: Calcul us of kidney . COMPAR SIVA: None. TECHNI QUE: CT scan of the abdome n and pelvis was perfor med withou t IV contra st. Multip lanar reform ats were obtain ed. Dose reduct ion techni ques were used. CONTRA ST: None. FINDIN GS: LOWER CHEST: Normal . HEPATO BILIAR Y: Severa l scatte red tiny cysts. No calcif ied gallst one. PANCRE : Normal . SPLEEN : Superi or pole spleni c cystic struct ure with periph eral calcif icatio n is most likely benign . ADRENA L GLANDS : Normal . KIDNEY S/BLAD CRISTAL: Left renal cyst; no follow -up necess hernan. Puncta te 1-2 mm bilate ral nonobs tructi ng renal calcul i (x3 on the right and x5 on the left). No convin cing ureter al or bladde r calcul us. BOWEL: Normal . LYMPH NODES: Normal . VASCUL ATURE: Minima l athero sclero sis. PELVIC ORGANS : No pelvic mass. MUSCUL OSKELE STEVIE: Right hip arthro plasty . Degene rative change s of the spine. IMPRES FELIBERTO: 1. Bilate ral puncta te nonobs tructi ng renal calcul i. This report was electr onical ly interp reted by: Eddie farnsworth MD on 2023 at 15:49 [facility] [place] [id number] [place] [address] [address], [place], [address], 07/25/2023 12:01:19 Result Notes None recorded. Procedures Surgical History Date Name Laterality Status Provider Name and Address Organization Details Recorded Time 07/06/19 24 CystoscopyFemale completed Elyssa Landry MD [address] [facility],[address], [place], [address], [facility] 07/06/2023 11:03:06 07/06/19 24 Urinalysis completed [facility] 07/06/2023 10:29:35 07/06/19 24 Bladder Scan completed [facility] ph[facility] 07/06/2023 10:47:21 lithotripsy completed [facility] 07/06/2023 10:43:28 Imaging Results Imaging Date Name Status LastModified by Organiz ation Details LastModified Time 07/12/2023 CT, abdomen + pelvis, w/o contrast completed [facility] [place] [address] [facility] [address], [place], [address], 07/25/2023 12:01:19 Procedure Notes None recorded. Medical Equipment None Reported. Allergies Allergen ID Allergen Name Allergen Category Reaction Reaction Severity Criticality Documentation Date Start Date Code Code System Note Provider Name and Address Organization Details Recorded Time 958191 Macrobid medicatio n rash Not available Not available 07/06/2023 76308 1 RxNorm Sulaiman pham [facility] 10:39:46 Medications Name Sig Start Date Stop Date Status Note LastModified by Organization Details LastModified Time amoxicillin 500 mg capsule TAKE 4 CAPSULES 1 HOUR PRIOR TO ANY DENTAL PROCEDURE , INCLUDING ROUTINE CLEANING. active Not Available Not Available No t Available primidone 50 mg tablet TAKE 4 TABLETS (200 MG) BY MOUTH AT BEDTIME active Not Available Not Available No t Available atorvastati n 20 mg tablet TAKE 1 TABLET BY MOUTH EVERY EVENING active Not Available Not Available No t Available cefpodoxime 200 mg tablet 07/05 completed Not Available Not Available Not Available meloxicam 15 mg tablet TAKE 1 TABLET BY MOUTH EVERY DAY 07/05 completed Not Available Not Available Not Available ondansetron HCl 4 mg tablet TAKE 1 TABLET BY MOUTH EVERY 8 HOURS NEEDED FOR NAUSEA AND VOMITING 07/05 completed Not Available Not Available Not Available sumatriptan 50 mg tablet active Not Available Not Available Not Available ciprofloxac in 500 mg tablet TAKE 1 TABLET BY MOUTH 2 TIMES DAILY FOR 14 DAYS. 07/05 completed Not Available Not Available Not Available sulfamethox azole 800 mg-trimetho prim 160 mg tablet TAKE 1 TABLET BY MOUTH TWICE A DAY 07/05 completed Not Available Not Available Not Available omeprazole 40 mg capsule,del ayed release TAKE 1 CAPSULE BY MOUTH EVERY DAY active Not Available Not Available No t Available aspirin 81 mg tablet,jd yed release TAKE 1 TABLET (81 MG) BY MOUTH TWO TIMES DAILY WITH MEALS. BEGIN EVENING OF SURGERY active Not Available Not Available No t Available acetaminoph en 500 mg tablet PLEASE SEE ATTACHED FOR DETAILED DIRECTION S 07/05 completed Not Available Not Available Not Available cefadroxil 500 mg capsule TAKE 1 CAPSULE (500 MG) BY MOUTH TWO TIMES DAILY FOR 5 DAYS. START EVENING OF SURGERY 07/05 completed Not Available Not Available Not Available cephalexin 500 mg capsule Take 1 capsule every 8 hours by oral route. active Not Available Not Available No t Available oxybutynin chloride ER 5 mg tablet,exte nded release 24 hr TAKE ONE TABLET BY MOUTH EVERY DAY 07/05 completed Not Available Not Available Not Available triamterene 37.5 mg-hydrochl orothiazide 25 mg tablet TAKE 1/2 TABLET BY MOUTH EVERY DAY active Not Available Not Available No t Available estradiol 0.01% (0.1 mg/gram) vaginal cream INSERT 1 GRAM IN TO VAGINA TWO TIMES A WEEK active Not Available Not Available No t Available celecoxib 100 mg capsule TAKE 1 CAPSULE BY MOUTH TWICE A DAY active Not Available Not Available No t Available ondansetron 4 mg disintegrat ing tablet 07/05 completed Not Available Not Available Not Available cefdinir 300 mg capsule TAKE 1 CAPSULE BY MOUTH TWICE A DAY 07/05 completed Not Available Not Available Not Available oxycodone 5 mg tablet TAKE 1-2 TABLETS (5-10 MG) BY MOUTH EVERY 4 HOURS IF NEEDED FOR PAIN. 07/05 completed Not Available Not Available Not Available cyclobenzap rine 5 mg tablet TAKE 1 TABLET (5 MG) BY MOUTH THREE TIMES DAILY. 07/05 completed Not Available Not Available Not Available Senna Plus 8.6 mg-50 mg tablet TAKE 1-4 TABLETS BY MOUTH 2 TIMES DAILY IF NEEDED FOR CONSTIPAT ION. 07/05 completed Not Available Not Available Not Available duloxetine 30 mg capsule,del ayed release TAKE 1 CAPSULE BY MOUTH EVERY DAY active Not Available Not Available No t Available pregabalin 25 mg capsule TAKE 1 CAPSULE BY MOUTH EVERY DAY active Not Available Not Available No t Available Myrbetriq 25 mg tablet,exte nded release TAKE 1 TABLET BY MOUTH EVERY DAY 07/05 completed Not Available Not Available Not Available Lagevrio 200 mg capsule (EUA) TAKE FOUR 200 MG CAPSULES EVERY 12 HOURS FOR 5 DAYS BY ORAL ROUTE 07/05 completed Not Available Not Available Not Available Vitals Date Recorded Body height Body mass index (BMI) Body weight Provider Name and Address Organization Details Last Updated DateTime 07/06/2023 147.32 cm 24 kg/m2 38145.[address] [facility] 07/06/2023 10:39:38 Social History Question Answer Notes LastModified by Organizat ion Details LastModified Time Tobacco Smoking Status Never Smoker Sulaiman Hutchinson [facility] 07/06/2023 10:43:10 What Is Your Level Of Alcohol Consumption? None Information not available 07/06/2023 What Is Your Level Of Caffeine Consumption? Moderate [email or web address] Information not available 07/06/2023 What Was The Date Of Your Most Recent Tobacco Screening? 07/06/2023 Information not available 07/06/2023 Do You Use Any Illicit Or Recreational Drugs? No [email or web address] Information not available 07/06/2023 Do You Or Have You Ever Used Any Other Forms Of Tobacco Or Nicotine? No [email or web address] Information not available 07/06/2023 Sex: Unknown Functional Status None recorded. Mental Status None recorded. Family History Relationship Description Onset Age of this Age Resolved Age Notes Brother Malignant tumor of lung Medical History Condition Response Kidney Stones Y Gynecological History Statement/Question Response Sexually Active? N Obstetrics History GPAL:G 2 P 1 0 0 1 Type Value Full Term 1 Living 1 Total 2 Past Encounters Encounter ID Performer Location Encounter Start Date Encounter Closed Date Diagnosis/Indication Diagnosis SNOMED-CT Code [id number] Elyssa Landry MD [facility] [address] [place] [address] 07/06/2023 10:16:27 07/10/2023 10:24:19 Urinary tract infectious disease 01701292 Kidney stone 10032126 Overactive urinary bladder 973817465 Female str ess incontinence 37185343 Health Concerns Section Related Observation LastModified by Organization Detai ls LastModified Time None Recorded Concern Status LastModified by Organization Details LastModified Time None Recorded Advance Directives Directive None Recorded Payers Encounter Date Sequence Insurance Name Policy Number Policy Nash Covered Member ID Nash Member ID Guarantor Name 07/06/2023 1 [employer] (MEDICARE REPLACEMENT PPO) [id number] Gabriella A Brandriet [id number] Gabriella A Brandriet Notes Date Note Type Note Provider Name and Address Organization Details Recorded Time 07/06/2023 text/html HPI Notes: 1. 67 YO F new patient here for hx of kidney stone, Vinicio asymptomatic, last one in 03/2023 had to reschedule hip surgery. 2. She has urgency and frequency of going to the bathroom, started 5 years ago; tried PT ( did not help); tried ditropan and myrbetriq ( did not help). Nocturia times once. She has to use a pad during the day. Some stress incontinence with coughing and sneezing. UC: (03/04/23) <10k mixed (03/24/23) >100k Mary Valles S Last lithotripsy: ~ 1 year ago PMHx: kidney stone, HTN, aortic sclerosis, doss's esophogus PSHx: knee replacement, ho lithotripsy in the past (one year ago), No recent imaging sent with referral UA is normal, PVR is minimal Cysto is normal. Elyssa Landry MD [address] [place] [address] [address], [place], [address], [facility] 07/06/2023 11:16:22 OBGyn Episode No OBEpisode recorded.
--- OUTSIDE RECORDS SUMMARY | 2023-09-26 08:08 | XMS_ITS | Clinical Summary ---
Author Organization [employer] [facility] Address [place], [place] [address] Care Team Providers Care Solar Energy Engineer Name Role Phone Eileen Aguirre MD Primary Care Provider [phone] Allergies Active Allergy Reactions Criticality Noted Date Comments Nitrofurantoin *Unknown 06/29/2012 Unlisted Allergen (Include Detail In Comments) Other - Describe In Comment Field 11/13/2014 bioabsorpable screws Medications Medication Sig Dispensed Refills Start Date End Date Status atorvastatin (Lipitor) 10 mg tablet Take 20 mg by mouth once daily. 0 10/13/2020 Active meloxicam (Mobic) 15 mg tabletIndications:Pr imary osteoarthritis of right hip Take 1 Tablet (15 mg) by mouth once daily. 14 Tablet 02/02/2023 Active acetaminophen (TYLENOL EXTRA STRGTH) 500 mg tabletIndications:St atus post total hip replacement, right Take 2 Tablets (1,000 mg) by mouth every 6 hours if needed for Pain. Max acetaminophen dose: 4000mg in 24 hrs. 60 Tablet 04/11/2023 Active aspirin (ECOTRIN) 81 mg enteric coated tabletIndications:St atus post total hip replacement, right Take 1 Tablet (81 mg) by mouth two times daily with meals. Begin evening of surgery 60 Tablet 04/11/2023 Active celecoxib (CeleBREX) 100 mg capsuleIndications:S tatus post total hip replacement, right Take 1 Capsule (100 mg) by mouth two times daily with meals. 60 Capsule 04/11/2023 Active oxyCODONE (ROXICODONE) 5 mg immediate release tabletIndications:St atus post total hip replacement, right Take 1-2 Tablets (5-10 mg) by mouth every 4 hours if needed for Pain. 40 Tablet 04/11/2023 Active sennosides-docusate (Senokot-S) (8.6-50 mg) tabletIndications:St atus post total hip replacement, right Take 1-4 Tablets by mouth 2 times daily if needed for Constipation. 100 Tablet 04/11/2023 Active ondansetron (Zofran) 4 mg tabletIndications:St atus post total hip replacement, right Take 1 Tablet (4 mg) by mouth every 8 hours if needed for Nausea/Vomiting. 10 Tablet 04/11/2023 Active primidone (MYSOLINE) 50 mg tablet Take 50 mg by mouth once daily. taking 3 tabs (150 mg) Active triamterene-hydrochl orothiazide, 37.5-25 mg, (DYAZIDE) 37.5-25 mg capsule Take 1 Capsule by mouth every morning. 1/2 tab Active omeprazole (PRILOSEC) 20 mg Delayed-Release capsule Take 20 mg by mouth once daily before a meal. Active pregabalin (LYRICA) 25 mg capsule Take 25 mg by mouth once daily. Active LACTOBACILLUS ACIDOPHILUS ORAL Take 1 Dose by mouth once daily. Active DULoxetine (CYMBALTA) 30 mg Delayed-release capsule Take 30 mg by mouth once daily. Active cyclobenzaprine (FLEXERIL) 5 mg tabletIndications:St atus post total hip replacement, right Take 1 Tablet (5 mg) by mouth three times daily. 20 Tablet 05/08/2023 Active amoxicillin (AMOXIL) 500 mg capsuleIndications:S tatus post right hip replacement Take 4 capsules 1 hour prior to any dental procedure, including routine cleaning. 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 Coronado on 12/02/11 07/27/2012 Right shoulder pain with tack lysis 07/27/2012 Social History Tobacco Use Types Packs/Day Years Used Date Smoking Tobacco: Never Smokeless Tobacco: Never Alcohol Use Standard Drinks/Week Comments No 0 (1 standard drink = 0.6 oz pur e alcohol) Social Connections Answer Date Recorded Frequency of Communication with Friends and Fami ly Not on file 11/22/2022 Sex and Gender Information Value Date Recorded Sex Assigned at Not on file Gender Identity Not on file Sexual Orientation Not on file Obstetrics History Last Filed Vital Signs Vital Sign Reading Time Taken Comments Blood Pressure 116/70 04/24/2023 1:17 PM GLUE REEL OPERATOR Pulse 78 04/24/2023 1:17 PM GLUE REEL OPERATOR Temperature 37 ??C (98.6 ??F) 04/14/2023 2:14 PM GLUE REEL OPERATOR Respiratory Rate 18 12/13/2022 10:36 AM CDT Oxygen Saturation 99% 04/24/2023 1:17 PM GLUE REEL OPERATOR Inhaled Oxygen Concentration - - Weight 50.3 kg (111 lb) 04/14/2023 2:14 PM GLUE REEL OPERATOR Height 147.3 cm (4' 10) 11/22/2022 9:03 AM CDT Body Mass Index 23.2 11/22/2022 9:03 AM CDT Plan of Treatment Upcoming Encounters Date Type Department Care Team (Late st Contact Info) Description 10/03/2023 2:30 PM CDT Office Visit [facility] [address] [facility] [address] [place] [phone] Arthur Dewitt MD [address] [facility] [address] [place] [address] 10/16/2023 Hospital Encounter Heber Wilson MD [address] [place] [address] 10/26/2023 1:00 PM CDT Office Visit [facility] [address] [place] [address] Yajaira Hopkins PA [address] [place] [address] Scheduled Procedures Name Priority Associated Diagnoses Date/Ti me SURGICAL PROCEDURE (TYPE PROCEDURE DESCRIPTION BELOW) 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 Health Maintenance Due Date Last Done Comments Tdap 1965 Depression screening for age 12+ 1966 Hepatitis C screening for age 18-79 1972 Tetanus booster 1974 Colonoscopy through age 75 11/20/1999 Lipids for age 45-75 11/20/1999 Mammogram for age 45-75 11/20/1999 Zoster (shingles) series for age 50+ (1 of 2) 2004 DEXA/DXA scan for age 65+ 11/20/2019 Medicare Wellness for age 65+ 11/20/2019 Pneumococcal series for age 65+ (1 of 1 - PCV) 11/20/2019 COVID-19 vaccine series (3 - 2022-24 season) 2023 01/25/2023, 10/08/2020 Influenza for age 65+ 10/22/2023 BMI (ht and wt on same day) for age 18+ 11/23/2023 1 Care Teams Solar Energy Engineer Relationship Specialty Start Date End Date Eileen Aguirre MD [address] [place] [place] [address] PCP - General 03/23/23
== END 2023-09-25 16:38 | disposition home or self-care (01) ==
LOC: NFLDREF 09-26 08:04
PROVIDERS: PCP Family Medicine; Referring Provider Family Medicine; Visit Provider Family Medicine
DX: R30.0 Dysuria (principal)
CPT/HCPCS: 87086